=== PATIENT | male | born 1945 | race Caucasian/White ===

== ENCOUNTER → 2023-12-11 | Outpatient (CLI) | payer OTHER, SELFPAY ==
[2023-12-11 14:39] LABS: Basophils # (Auto) 0.1 Thou/mm3 (0.0-0.2); Basophils % (Auto) 1 % (0-2.5); Eosinophils # (Auto) 0.6 Thou/mm3 (0.0-0.5); Eosinophils % (Auto) 8 % (0-10); Hematocrit 33.3 % (41.0-53.0); Hemoglobin 11.2 g/dL (13.5-16.0); Immature Granulocytes % (Auto) 0 % (0-0); Immature Granulocytes Auto 0.01 Thou/mm3 (0.00-0.00); Lymphocytes # (Auto) 2.4 Thou/mm3 (1.0-4.8); Lymphocytes % (Auto) 31 % (10-50); Mean Corpuscular HGB Conc 33.6 g/dl (31.0-37.0); Mean Corpuscular Hemoglobin 33.6 pg (25.0-35.0); Mean Corpuscular Volume 100 fL (80-100); Monocytes # (Auto) 0.6 Thou/mm3 (0.0-0.8); Monocytes % (Auto) 7 % (0-12); Neutrophils # (Auto) 4.1 Thou/mm3 (1.8-7.7); Neutrophils % (Auto) 53 % (37-80); Nucleated Red Blood Cell % 0 /100 WBC (0); Platelet Count 299 Thou/mm3 (140-440); Prostate Specific Antigen 0.87 ng/mL (0-4.00); Red Blood Count 3.33 Miln/mm3 (4.50-5.90); White Blood Count 7.7 Thou/mm3 (3.8-10.6)
[2023-12-11 14:40] LABS: Alanine Aminotransferase 14 U/L (10-49); Albumin, Serum 3.9 gm/dL (3.4-4.8); Albumin/Globulin Ratio 1.7 (1.2-2.2); Alkaline Phosphatase 64 U/L (46-116); Anion Gap 6 (7-16); Aspartate Amino Transferase 13 U/L (0-34); BUN/Creatinine Ratio 16 Ratio (12-20); Bilirubin,Total 0.4 mg/dL (0.3-1.2); Blood Urea Nitrogen 21 mg/dL (9-23); Calcium 9.4 mg/dL (8.3-10.6); Calcium (Corrected) 9.5 mg/dL (8.5-10.1); Carbon Dioxide 23.6 mMol/L (20.0-31.0); Chloride 107 mMol/L (98-107); Creatinine (Component) 1.3 mg/dL (0.6-1.3); Globulin 2.3 gm/dL (2.3-3.5); Glucose 97 mg/dL (74-106); Osmolality,Calculated 276 (275-295); Potassium 4.7 mMol/L (3.4-5.1); Sodium 137 mMol/L (136-145); Total Protein 6.2 gm/dL (5.7-8.2); eGFR 57 See Note
== END | disposition home or self-care (01) ==
LOC: SCTO 12:58
PROVIDERS: PCP Family Medicine; Referring Provider Nurse Practitioner Family; Visit Provider Nurse Practitioner Family
DX: C61 Malignant neoplasm of prostate (principal)
CPT/HCPCS: 36415; 80053; 84153; 85025

== ENCOUNTER 2023-12-14 13:55 | Outpatient (RCR) | payer OTHER, SELFPAY | END 2024-01-06 23:59 | disposition home or self-care (01) | LOC: SCTC 13:55 | PROVIDERS: PCP Family Medicine; Referring Provider Family Medicine; Visit Provider Internal Medicine Hematology & Oncology | DX: Z51.11 Encounter for antineoplastic chemotherapy (principal); C61 Malignant neoplasm of prostate; Z92.3 Personal history of irradiation; I10 Essential (primary) hypertension | CPT/HCPCS: 96402; J9217 ==

== ENCOUNTER → 2024-01-19 | Outpatient (CLI) | payer OTHER, SELFPAY ==
[2024-01-19 15:20] LABS: Basophils # (Auto) 0.1 Thou/mm3 (0.0-0.2); Basophils % (Auto) 1 % (0-2.5); Eosinophils # (Auto) 0.9 Thou/mm3 (0.0-0.5); Eosinophils % (Auto) 11 % (0-10); Hematocrit 32.2 % (41.0-53.0); Hemoglobin 11.2 g/dL (13.5-16.0); Immature Granulocytes % (Auto) 0 % (0-0); Immature Granulocytes Auto 0.01 Thou/mm3 (0.00-0.00); Lymphocytes # (Auto) 2.2 Thou/mm3 (1.0-4.8); Lymphocytes % (Auto) 27 % (10-50); Mean Corpuscular HGB Conc 34.8 g/dl (31.0-37.0); Mean Corpuscular Volume 98 fL (80-100); Monocytes # (Auto) 0.5 Thou/mm3 (0.0-0.8); Monocytes % (Auto) 6 % (0-12); Neutrophils # (Auto) 4.4 Thou/mm3 (1.8-7.7); Neutrophils % (Auto) 54 % (37-80); Nucleated Red Blood Cell % 0 /100 WBC (0); Platelet Count 306 Thou/mm3 (140-440); RDW Standard Deviation 48.8 fL (35.1-43.9); Red Blood Count 3.29 Miln/mm3 (4.50-5.90); White Blood Count 8.2 Thou/mm3 (3.8-10.6)
[2024-01-19 15:47] LABS: Prostate Specific Antigen 1.06 ng/mL (0-4.00)
[2024-01-19 15:48] LABS: Alanine Aminotransferase 19 U/L (10-49); Albumin, Serum 4.2 gm/dL (3.4-4.8); Alkaline Phosphatase 68 U/L (46-116); Anion Gap 6 (7-16); Aspartate Amino Transferase 14 U/L (0-34); BUN/Creatinine Ratio 23 Ratio (12-20); Bilirubin,Total 0.5 mg/dL (0.3-1.2); Blood Urea Nitrogen 25 mg/dL (9-23); Calcium 9.3 mg/dL (8.3-10.6); Calcium (Corrected) 9.3 mg/dL (8.5-10.1); Chloride 106 mMol/L (98-107); Creatinine (Component) 1.1 mg/dL (0.6-1.3); Globulin 2.1 gm/dL (2.3-3.5); Glucose 158 mg/dL (74-106); Osmolality,Calculated 275 (275-295); Potassium 4.6 mMol/L (3.4-5.1); Sodium 134 mMol/L (136-145); Total Protein 6.3 gm/dL (5.7-8.2); eGFR > 60 See Note
== END | disposition home or self-care (01) ==
LOC: SCTO 14:06
PROVIDERS: PCP Family Medicine; Referring Provider Nurse Practitioner Family; Visit Provider Nurse Practitioner Family
DX: C61 Malignant neoplasm of prostate (principal)
CPT/HCPCS: 36415; 80053; 84153; 85025

== ENCOUNTER 2024-01-22 10:50 | Outpatient (RCR) | payer OTHER, SELFPAY | END 2024-02-06 23:59 | disposition home or self-care (01) | LOC: SCTC 10:50 | PROVIDERS: PCP Family Medicine; Referring Provider Family Medicine; Visit Provider Internal Medicine Hematology & Oncology | DX: Z51.11 Encounter for antineoplastic chemotherapy (principal); C61 Malignant neoplasm of prostate; Z92.3 Personal history of irradiation; Z79.818 Long term (current) use of other agents affecting estrogen receptors and estrogen levels; I10 Essential (primary) hypertension | CPT/HCPCS: 96402; J9217 ==

== ENCOUNTER → 2024-02-20 | Outpatient (CLI) | payer OTHER, SELFPAY ==
[2024-02-20 13:40] LABS: Basophils # (Auto) 0.1 Thou/mm3 (0.0-0.2); Basophils % (Auto) 1 % (0-2.5); Eosinophils # (Auto) 0.6 Thou/mm3 (0.0-0.5); Eosinophils % (Auto) 7 % (0-10); Hematocrit 33.2 % (41.0-53.0); Hemoglobin 11.4 g/dL (13.5-16.0); Immature Granulocytes % (Auto) 1 % (0-0); Immature Granulocytes Auto 0.04 Thou/mm3 (0.00-0.00); Lymphocytes % (Auto) 23 % (10-50); Mean Corpuscular HGB Conc 34.3 g/dl (31.0-37.0); Mean Corpuscular Hemoglobin 33.6 pg (25.0-35.0); Mean Corpuscular Volume 98 fL (80-100); Monocytes # (Auto) 0.6 Thou/mm3 (0.0-0.8); Monocytes % (Auto) 6 % (0-12); Neutrophils # (Auto) 5.4 Thou/mm3 (1.8-7.7); Neutrophils % (Auto) 62 % (37-80); Nucleated Red Blood Cell % 0 /100 WBC (0); Platelet Count 305 Thou/mm3 (140-440); RDW Standard Deviation 50.1 fL (35.1-43.9); Red Blood Count 3.39 Miln/mm3 (4.50-5.90); White Blood Count 8.6 Thou/mm3 (3.8-10.6)
[2024-02-20 13:58] LABS: Prostate Specific Antigen 0.87 ng/mL (0-4.00)
[2024-02-20 14:00] LABS: Alanine Aminotransferase 15 U/L (10-49); Albumin/Globulin Ratio 1.7 (1.2-2.2); Alkaline Phosphatase 72 U/L (46-116); Anion Gap 12 (7-16); Aspartate Amino Transferase 16 U/L (0-34); BUN/Creatinine Ratio 23 Ratio (12-20); Bilirubin,Total 0.5 mg/dL (0.3-1.2); Blood Urea Nitrogen 27 mg/dL (9-23); Calcium 9.3 mg/dL (8.3-10.6); Calcium (Corrected) 9.3 mg/dL (8.5-10.1); Carbon Dioxide 21.4 mMol/L (20.0-31.0); Chloride 103 mMol/L (98-107); Creatinine (Component) 1.2 mg/dL (0.6-1.3); Globulin 2.4 gm/dL (2.3-3.5); Glucose 244 mg/dL (74-106); Osmolality,Calculated 285 (275-295); Potassium 4.1 mMol/L (3.4-5.1); Sodium 136 mMol/L (136-145); Total Protein 6.4 gm/dL (5.7-8.2); eGFR > 60 See Note
== END | disposition home or self-care (01) ==
LOC: SCTO 13:13
PROVIDERS: PCP Internal Medicine; Referring Provider Nurse Practitioner Family; Visit Provider Nurse Practitioner Family
DX: C61 Malignant neoplasm of prostate (principal)
CPT/HCPCS: 36415; 80053; 84153; 85025

== ENCOUNTER 2024-02-23 10:48 | Outpatient (RCR) | payer OTHER, SELFPAY | END 2024-03-08 23:59 | disposition home or self-care (01) | LOC: SCTC 10:48 | PROVIDERS: PCP Internal Medicine; Referring Provider Internal Medicine; Visit Provider Nurse Practitioner Family | DX: Z51.11 Encounter for antineoplastic chemotherapy (principal); C61 Malignant neoplasm of prostate; Z19.2 Hormone resistant malignancy status; I10 Essential (primary) hypertension; Z79.818 Long term (current) use of other agents affecting estrogen receptors and estrogen levels | CPT/HCPCS: 96402; 99213; J9217; G0463 ==

== ENCOUNTER → 2024-03-04 | Outpatient (CLI) | payer OTHER, SELFPAY ==
--- NOTE | 2024-03-04 14:11 | XR_ITS ---
Examination: Foot, left, 3 views Technique: AP, oblique, lateral views foot, 3 views Date and time of exam: March 04, 2024 1420 hours INDICATIONS: Patient fell 2 months ago with injury to the foot, foot pain. FINDINGS: Severe osteopenia Advanced osteoarthritis first metatarsophalangeal joint No acute fracture No cortical bone destruction IMPRESSION: Advanced osteoarthritis first metatarsophalangeal joint
== END | disposition home or self-care (01) ==
LOC: SDIM 14:03
PROVIDERS: Referring Provider Podiatrist; Visit Provider Podiatrist
DX: M19.072 Primary osteoarthritis, left ankle and foot (principal)
CPT/HCPCS: 73630

== ENCOUNTER → 2024-04-01 | Outpatient (CLI) | payer OTHER, SELFPAY ==
[2024-04-01 14:26] LABS: Basophils # (Auto) 0.1 Thou/mm3 (0.0-0.2); Basophils % (Auto) 1 % (0-2.5); Eosinophils # (Auto) 0.8 Thou/mm3 (0.0-0.5); Eosinophils % (Auto) 9 % (0-10); Hematocrit 33.8 % (41.0-53.0); Hemoglobin 11.6 g/dL (13.5-16.0); Immature Granulocytes % (Auto) 0 % (0-0); Immature Granulocytes Auto 0.02 Thou/mm3 (0.00-0.00); Lymphocytes # (Auto) 2.1 Thou/mm3 (1.0-4.8); Lymphocytes % (Auto) 25 % (10-50); Mean Corpuscular HGB Conc 34.3 g/dl (31.0-37.0); Mean Corpuscular Hemoglobin 33.7 pg (25.0-35.0); Mean Corpuscular Volume 98 fL (80-100); Monocytes # (Auto) 0.6 Thou/mm3 (0.0-0.8); Monocytes % (Auto) 7 % (0-12); Neutrophils # (Auto) 4.9 Thou/mm3 (1.8-7.7); Neutrophils % (Auto) 58 % (37-80); Nucleated Red Blood Cell % 0 /100 WBC (0); Platelet Count 306 Thou/mm3 (140-440); RDW Standard Deviation 49.4 fL (35.1-43.9); Red Blood Count 3.44 Miln/mm3 (4.50-5.90); White Blood Count 8.5 Thou/mm3 (3.8-10.6)
[2024-04-01 14:34] LABS: Prostate Specific Antigen 0.95 ng/mL (0-4.00)
[2024-04-01 14:37] LABS: Alanine Aminotransferase 18 U/L (10-49); Albumin, Serum 4.1 gm/dL (3.4-4.8); Albumin/Globulin Ratio 1.5 (1.2-2.2); Alkaline Phosphatase 76 U/L (46-116); Anion Gap 9 (7-16); Aspartate Amino Transferase 14 U/L (0-34); BUN/Creatinine Ratio 28 Ratio (12-20); Bilirubin,Total 0.6 mg/dL (0.3-1.2); Blood Urea Nitrogen 31 mg/dL (9-23); Calcium 9.8 mg/dL (8.3-10.6); Calcium (Corrected) 9.8 mg/dL (8.5-10.1); Carbon Dioxide 21.9 mMol/L (20.0-31.0); Chloride 108 mMol/L (98-107); Creatinine (Component) 1.1 mg/dL (0.6-1.3); Globulin 2.7 gm/dL (2.3-3.5); Glucose 126 mg/dL (74-106); Osmolality,Calculated 286 (275-295); Potassium 4.3 mMol/L (3.4-5.1); Sodium 139 mMol/L (136-145); Total Protein 6.8 gm/dL (5.7-8.2); eGFR > 60 See Note
== END | disposition home or self-care (01) ==
PROVIDERS: Referring Provider Nurse Practitioner Family; Visit Provider Nurse Practitioner Family
DX: C61 Malignant neoplasm of prostate (principal)
CPT/HCPCS: 36415; 80053; 84153; 85025

== ENCOUNTER 2024-04-02 14:23 | Outpatient (RCR) | payer OTHER, SELFPAY | END 2024-04-05 23:59 | disposition home or self-care (01) | LOC: SCTC 14:23 | PROVIDERS: PCP Physician Assistant; Referring Provider Physician Assistant; Visit Provider Nurse Practitioner Family | DX: Z51.11 Encounter for antineoplastic chemotherapy (principal); C61 Malignant neoplasm of prostate; Z19.2 Hormone resistant malignancy status; Z79.818 Long term (current) use of other agents affecting estrogen receptors and estrogen levels; Z92.3 Personal history of irradiation; I10 Essential (primary) hypertension; Z86.2 Personal history of diseases of the blood and blood-forming organs and certain disorders involving the immune mechanism | CPT/HCPCS: 96402; J9217 ==

== ENCOUNTER → 2024-05-01 | Outpatient (CLI) | payer OTHER, SELFPAY ==
[2024-05-01 15:24] LABS: Basophils # (Auto) 0.1 Thou/mm3 (0.0-0.2); Basophils % (Auto) 1 % (0-2.5); Eosinophils # (Auto) 0.5 Thou/mm3 (0.0-0.5); Eosinophils % (Auto) 6 % (0-10); Hematocrit 34.5 % (41.0-53.0); Hemoglobin 11.8 g/dL (13.5-16.0); Immature Granulocytes % (Auto) 0 % (0-0); Immature Granulocytes Auto 0.01 Thou/mm3 (0.00-0.00); Lymphocytes # (Auto) 2.4 Thou/mm3 (1.0-4.8); Lymphocytes % (Auto) 29 % (10-50); Mean Corpuscular HGB Conc 34.2 g/dl (31.0-37.0); Mean Corpuscular Hemoglobin 33.7 pg (25.0-35.0); Mean Corpuscular Volume 99 fL (80-100); Monocytes # (Auto) 0.5 Thou/mm3 (0.0-0.8); Monocytes % (Auto) 6 % (0-12); Neutrophils # (Auto) 4.8 Thou/mm3 (1.8-7.7); Neutrophils % (Auto) 58 % (37-80); Nucleated Red Blood Cell % 0 /100 WBC (0); Platelet Count 268 Thou/mm3 (140-440); RDW Standard Deviation 49.2 fL (35.1-43.9); White Blood Count 8.2 Thou/mm3 (3.8-10.6)
[2024-05-01 15:47] LABS: Alanine Aminotransferase 16 U/L (10-49); Albumin/Globulin Ratio 1.5 (1.2-2.2); Alkaline Phosphatase 74 U/L (46-116); Anion Gap 11 (7-16); Aspartate Amino Transferase 16 U/L (0-34); BUN/Creatinine Ratio 27 Ratio (12-20); Bilirubin,Total 0.5 mg/dL (0.3-1.2); Blood Urea Nitrogen 32 mg/dL (9-23); Calcium 9.9 mg/dL (8.3-10.6); Calcium (Corrected) 9.9 mg/dL (8.5-10.1); Carbon Dioxide 22.2 mMol/L (20.0-31.0); Chloride 106 mMol/L (98-107); Creatinine (Component) 1.2 mg/dL (0.6-1.3); Globulin 2.6 gm/dL (2.3-3.5); Glucose 205 mg/dL (74-106); Osmolality,Calculated 290 (275-295); Sodium 139 mMol/L (136-145); Total Protein 6.6 gm/dL (5.7-8.2); eGFR > 60 See Note
[2024-05-01 16:06] LABS: Prostate Specific Antigen 1.07 ng/mL (0-4.00)
== END | disposition home or self-care (01) ==
LOC: SCTO 14:21
PROVIDERS: PCP Physician Assistant; Referring Provider Nurse Practitioner Family; Visit Provider Nurse Practitioner Family
DX: C61 Malignant neoplasm of prostate (principal)
CPT/HCPCS: 36415; 80053; 84153; 85025

== ENCOUNTER 2024-05-02 13:45 | Outpatient (RCR) | payer OTHER, SELFPAY | END 2024-05-06 23:59 | disposition home or self-care (01) | LOC: SCTC 13:45 | PROVIDERS: PCP Internal Medicine; Referring Provider Internal Medicine Hematology & Oncology; Visit Provider Internal Medicine Hematology & Oncology | DX: Z51.11 Encounter for antineoplastic chemotherapy (principal); C61 Malignant neoplasm of prostate; Z79.818 Long term (current) use of other agents affecting estrogen receptors and estrogen levels; Z92.3 Personal history of irradiation; I10 Essential (primary) hypertension | CPT/HCPCS: 96402; J9217 ==

== ENCOUNTER → 2024-05-30 | Outpatient (CLI) | payer OTHER, SELFPAY ==
[2024-05-30 15:34] LABS: Basophils # (Auto) 0.1 Thou/mm3 (0.0-0.2); Basophils % (Auto) 1 % (0-2.5); Eosinophils # (Auto) 0.7 Thou/mm3 (0.0-0.5); Eosinophils % (Auto) 9 % (0-10); Hematocrit 34.4 % (41.0-53.0); Hemoglobin 11.6 g/dL (13.5-16.0); Immature Granulocytes % (Auto) 0 % (0-0); Immature Granulocytes Auto 0.02 Thou/mm3 (0.00-0.00); Lymphocytes # (Auto) 2.7 Thou/mm3 (1.0-4.8); Lymphocytes % (Auto) 34 % (10-50); Mean Corpuscular HGB Conc 33.7 g/dl (31.0-37.0); Mean Corpuscular Hemoglobin 34.1 pg (25.0-35.0); Mean Corpuscular Volume 101 fL (80-100); Monocytes # (Auto) 0.4 Thou/mm3 (0.0-0.8); Monocytes % (Auto) 6 % (0-12); Neutrophils # (Auto) 3.9 Thou/mm3 (1.8-7.7); Neutrophils % (Auto) 50 % (37-80); Nucleated Red Blood Cell % 0 /100 WBC (0); Platelet Count 281 Thou/mm3 (140-440); RDW Standard Deviation 49.8 fL (35.1-43.9); White Blood Count 7.8 Thou/mm3 (3.8-10.6)
[2024-05-30 15:38] LABS: Alanine Aminotransferase 16 U/L (10-49); Albumin, Serum 4.1 gm/dL (3.4-4.8); Albumin/Globulin Ratio 1.8 (1.2-2.2); Alkaline Phosphatase 83 U/L (46-116); Anion Gap 10 (7-16); Aspartate Amino Transferase 15 U/L (0-34); BUN/Creatinine Ratio 20 Ratio (12-20); Bilirubin,Total 0.8 mg/dL (0.3-1.2); Blood Urea Nitrogen 22 mg/dL (9-23); Calcium 9.4 mg/dL (8.3-10.6); Calcium (Corrected) 9.4 mg/dL (8.5-10.1); Carbon Dioxide 22.4 mMol/L (20.0-31.0); Chloride 111 mMol/L (98-107); Creatinine (Component) 1.1 mg/dL (0.6-1.3); Ferritin 148 ng/mL (10.5-307.3); Globulin 2.3 gm/dL (2.3-3.5); Glucose 144 mg/dL (74-106); Iron 77 mcg/dL (65-175); Osmolality,Calculated 291 (275-295); Percent Iron Saturation 27 % (20-55); Potassium 4.2 mMol/L (3.4-5.1); Prostate Specific Antigen 1.14 ng/mL (0-4.00); Sodium 143 mMol/L (136-145); Total Iron Binding Capacity 285 mcg/dL (250-425); Total Protein 6.4 gm/dL (5.7-8.2); Unsaturated Iron Binding 208 (225-295); eGFR > 60 See Note
[2024-05-30 15:39] LABS: Folate 12.37 ng/mL (>5.38); Vitamin B12 576 pg/mL (211-911)
== END | disposition home or self-care (01) ==
LOC: SCTO 13:22
PROVIDERS: Referring Provider Nurse Practitioner Family; Visit Provider Nurse Practitioner Family
DX: C61 Malignant neoplasm of prostate (principal)
CPT/HCPCS: 36415; 80053; 82607; 82728; 82746; 83540; 83550; 84153; 85025

== ENCOUNTER 2024-06-03 13:40 | Outpatient (RCR) | payer OTHER, SELFPAY | END 2024-06-05 23:59 | disposition home or self-care (01) | LOC: SCTC 13:40 | PROVIDERS: PCP Physician Assistant; Referring Provider Physician Assistant; Visit Provider Internal Medicine Hematology & Oncology | DX: Z51.11 Encounter for antineoplastic chemotherapy (principal); C61 Malignant neoplasm of prostate; Z19.2 Hormone resistant malignancy status; Z92.3 Personal history of irradiation; Z79.818 Long term (current) use of other agents affecting estrogen receptors and estrogen levels | CPT/HCPCS: 96402; J9217 ==

== ENCOUNTER 2024-06-11 13:52 | Outpatient (RCR) | payer OTHER, SELFPAY | END 2024-07-06 23:59 | disposition home or self-care (01) | LOC: SCTC 13:52 | PROVIDERS: PCP Physician Assistant; Referring Provider Physician Assistant; Visit Provider Nurse Practitioner Family | DX: C61 Malignant neoplasm of prostate (principal); Z19.2 Hormone resistant malignancy status; Z92.3 Personal history of irradiation; Z79.818 Long term (current) use of other agents affecting estrogen receptors and estrogen levels; K59.09 Other constipation; I10 Essential (primary) hypertension | CPT/HCPCS: 99212; G0463 ==

== ENCOUNTER → 2024-06-21 | Outpatient (CLI) | payer OTHER, SELFPAY ==
--- NOTE | 2024-06-21 | XR_ITS ---
Examination: Bone scan whole body, radioisotope Date and time of exam: June 21, 2024 1408 hours Comparison June 10, 2023 INDICATIONS: Diagnosis malignant neoplasm prostate status post radiation therapy, restaging Technique: Study has been performed with intravenous administration of 23.7 mci 99M technetium MDP. Anterior, posterior whole body images are obtained. Images have been obtained including the lower extremities. Findings: Subtle increased uptake in the lumbar thoracic spine, heterogeneous Increased uptake left shoulder IMPRESSION: Positive bone scan but nonspecific Recommend plain films lumbar thoracic spine left shoulder follow-up
== END | disposition home or self-care (01) ==
LOC: SNUC 08:53
PROVIDERS: Referring Provider Nurse Practitioner Family; Visit Provider Nurse Practitioner Family
DX: R93.7 Abnormal findings on diagnostic imaging of other parts of musculoskeletal system (principal); C61 Malignant neoplasm of prostate
CPT/HCPCS: 78306; A9503

== ENCOUNTER → 2024-07-08 | Outpatient (CLI) | payer OTHER, SELFPAY ==
[2024-07-08 10:23] LABS: Basophils # (Auto) 0.1 Thou/mm3 (0.0-0.2); Basophils % (Auto) 1 % (0-2.5); Eosinophils # (Auto) 0.5 Thou/mm3 (0.0-0.5); Eosinophils % (Auto) 8 % (0-10); Hematocrit 31.8 % (41.0-53.0); Immature Granulocytes % (Auto) 0 % (0-0); Immature Granulocytes Auto 0.02 Thou/mm3 (0.00-0.00); Lymphocytes # (Auto) 1.6 Thou/mm3 (1.0-4.8); Lymphocytes % (Auto) 24 % (10-50); Mean Corpuscular HGB Conc 34.6 g/dl (31.0-37.0); Mean Corpuscular Hemoglobin 33.5 pg (25.0-35.0); Mean Corpuscular Volume 97 fL (80-100); Monocytes # (Auto) 0.5 Thou/mm3 (0.0-0.8); Monocytes % (Auto) 7 % (0-12); Neutrophils % (Auto) 60 % (37-80); Nucleated Red Blood Cell % 0 /100 WBC (0); Platelet Count 258 Thou/mm3 (140-440); RDW Standard Deviation 48.7 fL (35.1-43.9); Red Blood Count 3.28 Miln/mm3 (4.50-5.90); White Blood Count 6.7 Thou/mm3 (3.8-10.6)
[2024-07-08 10:44] LABS: Prostate Specific Antigen 1.04 ng/mL (0-4.00)
[2024-07-08 10:56] LABS: Alanine Aminotransferase 13 U/L (10-49); Albumin, Serum 3.8 gm/dL (3.4-4.8); Albumin/Globulin Ratio 1.7 (1.2-2.2); Alkaline Phosphatase 73 U/L (46-116); Anion Gap 9 (7-16); Aspartate Amino Transferase 14 U/L (0-34); BUN/Creatinine Ratio 25 Ratio (12-20); Bilirubin,Total 0.6 mg/dL (0.3-1.2); Blood Urea Nitrogen 25 mg/dL (9-23); Calcium 8.8 mg/dL (8.3-10.6); Carbon Dioxide 22.5 mMol/L (20.0-31.0); Chloride 113 mMol/L (98-107); Globulin 2.3 gm/dL (2.3-3.5); Glucose 163 mg/dL (74-106); Osmolality,Calculated 295 (275-295); Potassium 3.9 mMol/L (3.4-5.1); Sodium 144 mMol/L (136-145); Total Protein 6.1 gm/dL (5.7-8.2); eGFR > 60 See Note
== END | disposition home or self-care (01) ==
LOC: SCTO 09:33
PROVIDERS: PCP Family Medicine; Referring Provider Nurse Practitioner Family; Visit Provider Nurse Practitioner Family
DX: C61 Malignant neoplasm of prostate (principal)
CPT/HCPCS: 36415; 80053; 84153; 85025

== ENCOUNTER 2024-07-11 12:59 | Outpatient (RCR) | payer OTHER, SELFPAY | END 2024-08-05 23:59 | disposition home or self-care (01) | LOC: SCTC 12:59 | PROVIDERS: PCP Family Medicine; Referring Provider Family Medicine; Visit Provider Internal Medicine Hematology & Oncology | DX: Z51.11 Encounter for antineoplastic chemotherapy (principal); C61 Malignant neoplasm of prostate; I10 Essential (primary) hypertension; M15.9 Polyosteoarthritis, unspecified | CPT/HCPCS: 96402; 99212; J9217; G0463 ==

== ENCOUNTER → 2024-07-19 | Outpatient (CLI) | payer OTHER, SELFPAY ==
--- NOTE | 2024-07-19 10:02 | XR_ITS ---
Examination: Lumbar spine 3 views Technique one AP lateral coned lateral lower lumbar spine 3 views Date and time: July 19, 2024 1021 hours INDICATIONS: Low back pain beginning one month ago FINDINGS: Lumbar dextroscoliosis 8 degrees No lumbar fracture Moderate degenerative disc disease L3-L4, advanced degenerative disc disease L5-S1 No spondylolisthesis Heavy abdominal aortic calcification IMPRESSION: Moderate degenerative disc disease L3-L4 Advanced degenerative disc disease L5-S1
--- NOTE | 2024-07-19 10:03 | XR_ITS ---
Examination: Thoracic spine 3 views Technique one AP lateral coned lateral upper dorsal spine 3 views Date and time: July 19, 2024 1014 hours INDICATIONS: Mid back pain beginning one month ago. FINDINGS: Adequate alignment thoracic vertebral bodies on the lateral view No acute thoracic fracture Moderate diffuse thoracic degenerative disc disease Moderate thoracic spondylosis Incidental note moderate to advanced degenerative disc disease C5-C6 C6-C7 IMPRESSION: Moderate diffuse thoracic degenerative disc disease
== END | disposition home or self-care (01) ==
PROVIDERS: PCP Family Medicine; Referring Provider Nurse Practitioner Family; Visit Provider Nurse Practitioner Family
DX: M51.379 Other intervertebral disc degeneration, lumbosacral region without mention of lumbar back pain or lower extremity pain (principal); M51.369 Other intervertebral disc degeneration, lumbar region without mention of lumbar back pain or lower extremity pain; I70.0 Atherosclerosis of aorta; M41.9 Scoliosis, unspecified; M51.34 Other intervertebral disc degeneration, thoracic region; M47.814 Spondylosis without myelopathy or radiculopathy, thoracic region
CPT/HCPCS: 72070; 72100

== ENCOUNTER → 2024-08-13 | Outpatient (CLI) | payer OTHER, SELFPAY ==
[2024-08-13 09:23] LABS: Basophils # (Auto) 0.0 Thou/mm3 (0.0-0.2); Basophils % (Auto) 1 % (0-2.5); Eosinophils # (Auto) 0.3 Thou/mm3 (0.0-0.5); Eosinophils % (Auto) 5 % (0-10); Hematocrit 30.0 % (41.0-53.0); Hemoglobin 10.3 g/dL (13.5-16.0); Immature Granulocytes Auto 0.02 Thou/mm3 (0.00-0.00); Lymphocytes # (Auto) 1.5 Thou/mm3 (1.0-4.8); Lymphocytes % (Auto) 25 % (10-50); Mean Corpuscular HGB Conc 34.3 g/dl (31.0-37.0); Mean Corpuscular Hemoglobin 34.1 pg (25.0-35.0); Mean Corpuscular Volume 99 fL (80-100); Monocytes # (Auto) 0.4 Thou/mm3 (0.0-0.8); Monocytes % (Auto) 7 % (0-12); Neutrophils # (Auto) 3.5 Thou/mm3 (1.8-7.7); Neutrophils % (Auto) 62 % (37-80); Nucleated Red Blood Cell # 0.00 Thou/mm3 (0.00-0.00); Nucleated Red Blood Cell % 0 /100 WBC (0); Platelet Count 262 Thou/mm3 (140-440); RDW Standard Deviation 53.2 fL (35.1-43.9); Red Blood Count 3.02 Miln/mm3 (4.50-5.90); White Blood Count 5.7 Thou/mm3 (3.8-10.6)
[2024-08-13 09:28] LABS: Alanine Aminotransferase 18 U/L (10-49); Albumin, Serum 3.6 gm/dL (3.4-4.8); Albumin/Globulin Ratio 1.5 (1.2-2.2); Alkaline Phosphatase 64 U/L (46-116); Anion Gap 11 (7-16); Aspartate Amino Transferase 14 U/L (0-34); BUN/Creatinine Ratio 22 Ratio (12-20); Bilirubin,Total 0.6 mg/dL (0.3-1.2); Blood Urea Nitrogen 22 mg/dL (9-23); Calcium 8.8 mg/dL (8.3-10.6); Calcium (Corrected) 9.1 mg/dL (8.5-10.1); Carbon Dioxide 24.5 mMol/L (20.0-31.0); Chloride 113 mMol/L (98-107); Creatinine (Component) 1.0 mg/dL (0.6-1.3); Globulin 2.4 gm/dL (2.3-3.5); Glucose 179 mg/dL (74-106); Osmolality,Calculated 301 (275-295); Potassium 3.5 mMol/L (3.4-5.1); Sodium 148 mMol/L (136-145); Total Protein 6.0 gm/dL (5.7-8.2); eGFR > 60 See Note
[2024-08-13 10:45] LABS: Prostate Specific Antigen 1.33 ng/mL (0-4.00)
== END | disposition home or self-care (01) ==
LOC: SCTO 07:51
PROVIDERS: PCP Internal Medicine; Referring Provider Nurse Practitioner Family; Visit Provider Nurse Practitioner Family
DX: C61 Malignant neoplasm of prostate (principal)
CPT/HCPCS: 36415; 80053; 84153; 85025

== ENCOUNTER 2024-08-27 12:49 | Inpatient (IN) | payer OTHER, SELFPAY ==
[2024-08-27] VITALS (17 sets, daily range): BP systolic 158–189; BP diastolic 60–100; PULSE 51–81; RESP 13–23; TEMP 36.2–38; O2SAT 93–96; BMI 27.7
--- NOTE | 2024-08-27 | XR_ITS ---
6 Examinations: MRI Brain without intravenous contrast. MRA brain without intravenous contrast. MRA carotids without intravenous contrast 3-D vascular reconstructions Date and time of exam: August 27, 2024 1527 hours INDICATIONS: Dizziness headaches this week Technique: Multiple axial and sagittal images of the brain have been obtained MRA brain carotid images without contrast obtained, including 3-D postprocessing, vascular maximum intensity projection images Findings: [place] is not enlarged. The optic chiasm and infundibular stalk are not remarkable. Prepontine and interpeduncular cisterns are not enlarged. No localized enlargement of the medulla or ivy. Fourth ventricle and cerebellar tonsils normal in position. Subacute hemorrhage is not seen. Fourth ventricle is midline. Mass in the cerebellopontine angle region is not evident. 7th and 8th nerve complexes exhibits symmetry. Globes are symmetrical with no retro-orbital mass. Increased white matter signal prominent Diffusion-weighted images demonstrate no acute infarct Mass-effect upon the ventricular system is not identified. MRA carotid images suspicious for 80% stenosis origin left internal carotid artery. MRA brain images no large vessel occlusions Impression: Negative for acute hemorrhage mass effect or midline shift No acute infarct Recommend carotid Doppler sonography follow-up to confirm significant stenosis origin left internal carotid artery
--- NOTE | 2024-08-27 12:52 | EKG_ITS ---
[facility] Test Date: 2024-08-27 Pat Name: BRIANNE DAVIS Department: Room: - Gender: Male W[employer] Tender: : 1945 Requested By: Quirino Strange (MAUREEN) Order Number: [id number] Reading MD: Quirino Strange (PULL TAB DEALER) Measurements Intervals [place] Rate: 69 P: IA: QRS: -63 QRSD: 151 T: 73 QT: 460 QTc: 496 Interpretive Statements ATRIAL FIBRILLATION RIGHT BUNDLE BRANCH BLOCK [120+ ms QRS DURATION, UPRIGHT V1, 40+ ms S IN I/aVL/V4/V5/V6] LEFT ANTERIOR FASCICULAR BLOCK [QRS AXIS <= -45, QR IN I, RS IN II] No previous ECG available for comparison /[id number]/[email or web address]/[id number].pdf
--- NOTE | 2024-08-27 12:52 | XR_ITS ---
Examination: PA chest single view TECHNIQUE: Upright PA chest single view Date and time: August 27, 2024 1311 hours INDICATIONS: Chest pain shortness of breath today. FINDINGS: Normal heart size. Mild hyperexpansion. No pneumonia or pulmonary edema. IMPRESSION: Mild hyperexpansion
--- NOTE | 2024-08-27 13:03 | XR_ITS ---
Examination: CTA chest with intravenous contrast 2-D reconstructions 3-D reconstructions, vascular Date and time of exam: August 27, 2024 1755 hours INDICATIONS: Onset shortness of breath chest pain today CTDI: vol (mGy) 1823. DLP: (mGycm) 449 Technique: Multiple axial sections of the thorax have been obtained. 3 mm slice thickness, from below the hemidiaphragms to above the apices of the lungs. Mediastinal and lung density settings have been obtained. 2-D sagittal and coronal reconstructions. 3-D angiographic renderings, 3-D volume renderings, 3D post processing, vascular maximum intensity projections obtained. Contrast administered is 100 cc Isovue 370 intravenous.. Low dose protocols were performed. One or more of the following dose reduction techniques were used; automated exposure control, adjustment of the mA and/or KV according to patient size, use of iterative reconstruction technique. Findings: Mild aneurysmal dilatation ascending thoracic aorta AP dimension 4.1 cm No pulmonary artery emboli No paratracheal tracheobronchial or bronchopulmonary adenopathy Soft opacities in the right upper lobe suspicious for mild pneumonia 4 mm pulmonary nodule in the left upper lobe image 170 Retrocardiac gastric hernia No focal liver or splenic lesions No pancreatic mass Lateral left renal cyst 39 mm IMPRESSION: Mild aneurysmal dilatation ascending thoracic aorta. Negative for pulmonary artery emboli Mild pneumonia right upper lobe 4 mm pulmonary nodule left lower lobe, recommend 6 month follow-up CT chest without contrast
--- NOTE | 2024-08-27 13:03 | XR_ITS ---
Examination: Duplex scan of the lower extremity, unilateral right complete Date and time of exam: August 27, 2024 1318 hours INDICATIONS: Right leg swelling and pain beginning 2 months ago Technique: Duplex scan of the extremity veins using B-mode/grayscale imaging and Doppler spectral analysis and color flow Attention is directed to internal echogenicity, compression and augmentation involving these veins, color flow assessment, spectral analysis Findings: Major deep venous structures in the extremity demonstrate normal course and caliber. There is no evidence of deep vein thrombosis. Normal color flow and spectral analysis Impression: Negative for DVT..
--- NOTE | 2024-08-27 13:07 | PD.EDDIZZY ---
ED Dizzyness RME/HPI General Chief Complaint: Dizziness Stated Complaint: Dizzy X 3 days, SOB Time Seen by Provider: 08/27/24 13:02 Arrival date/time: 08/27/24 12:49 Limitations: no limitations RME / HPI RME / HPI Narrative: 78 year old male with a history of right lower leg edema, shortness of breath, and dizziness. He states when he looks up or turns his head he has increased dizziness. Denies any injuries or falls. No history of CVA or PE. He has no fevers or chills. Has no chest/abdominal pain, nausea, vomiting. No diarrhea. He has no changes in urination. He has no other acute complaints or concerns. Related Data Home Medications ?Medication ?Instructions ?Recorded ?Confirmed insulin glargine 100 unit/mL 56 unit subcut QPM ##0 06/01/16 05/30/23 subcutaneous solution (Lantus U-100 Insulin) abiraterone 250 mg tablet 1,000 mg PO QDAY 04/13/23 05/30/23 aspirin 81 mg tablet,delayed 81 mg PO QDAY 04/13/23 05/30/23 release gabapentin 100 mg capsule 100 mg PO TID 04/13/23 05/30/23 lisinopril 20 mg tablet 20 mg PO QDAY 04/13/23 05/30/23 prednisone 5 mg tablet 5 mg PO QDAY 04/13/23 05/30/23 rosuvastatin 5 mg tablet 5 mg PO QDAY 04/13/23 05/30/23 terazosin 5 mg capsule 5 mg PO QHS 04/13/23 05/30/23 Allergies Allergy/AdvReac Type Severity Reaction Status Date / Time No Known Allergies Allergy Verified 08/27/24 12:53 Review of Systems Review of Systems Systems Reviewed: All systems reviewed, normal except as documented ED Exam General Limitations: Present no limitations General appearance: Present alert and in no apparent distress Head Head exam: Present atraumatic Eye Eye exam: Present normal appearance, PERRL and EOMI ENT ENT exam: Present normal exam, normal oropharynx and mucous membranes moist Neck Neck exam: Present normal inspection, full ROM and trachea midline Chest Chest inspection: Present normal inspection and symmetric chest wall rise Respiratory Respiratory exam: Present normal lung sounds bilaterally Cardiovascular Cardiovascular exam: Present regular rate, irregular rhythm and normal heart sounds Abdominal Exam Abdominal exam: Present soft and normal bowel sounds Extremities Exam Extremities exam: Present normal inspection and full ROM Back Exam Back exam: Present normal inspection and full ROM Neurological Exam Neurological exam: Present alert and oriented X3 Psychiatric Psychiatric exam: Present normal affect and normal mood Skin Skin exam: Present warm, dry, intact and normal color Course Quality Measures none Orders Category Date Time Status COVID-19 Screening Questionnaire NOW Care 08/27/24 19:[address] Screening NOW Care 08/27/24 13:04 Active Configuration Analyst NOW Care 08/27/24 12:52 Active Decision to Admit X1 Care 08/27/24 19:22 Ordered EKG (ED ONLY) *Do not use* NOW Care 08/27/24 12:52 Completed MRI Screening NOW Care 08/27/24 13:04 Active MRI Screening NOW Care 08/27/24 13:[address] angio chest Stat Exams 08/27/24 13:03 Completed EKG (ED Only) Stat Exams 08/27/24 12:52 Draft MR brain wo MRA brn wo weir wo Stat Exams 08/27/24 Completed US venous doppler LE RT Stat Exams 08/27/24 13:03 Completed XR chest 1V portable Stat Exams 08/27/24 12:52 Completed B-Type Natriuretic Peptide Stat Lab 08/27/24 12:59 Completed CBC Stat Lab 08/27/24 12:59 Completed Comprehensive Metabolic Panel Stat Lab 08/27/24 12:59 Completed Magnesium Stat Lab 08/27/24 12:59 Completed Partial Thromboplastin Time Stat Lab 08/27/24 12:59 Completed Prothrombin Time with INR Stat Lab 08/27/24 12:59 Completed Troponin I Stat Lab 08/27/24 12:59 Completed Troponin I Stat Lab 08/27/24 16:25 Completed Urinalysis Stat Lab 08/27/24 17:41 Completed Amoxicillin/Pot Clav 875 [Augmentin 875] Med 08/27/24 18:36 Discontinued 1 tab PO X1 ONE Magnesium Oxide [Mag-Ox 400] Med 08/27/24 17:38 Discontinued 400 mg PO X1 ONE POTASSIUM CHL 10 mEq IVPB [Kcl Ivpb] Med 08/27/24 17:38 Active 10 meq in 100 ml IV Q1H Potassium Chloride [K-Dur] Med 08/27/24 17:38 Discontinued 20 meq PO X1 ONE Sodium Chloride 0.9% 1000 ml [Ns] 1,000 ml Med 08/27/24 18:05 Active IV 150 mls/hr Vital Signs Vital signs: Vital Signs Temperature 98.6 F 08/27/24 13:02 Pulse Rate 67 08/27/24 13:02 Respiratory Rate 18 08/27/24 13:02 Blood Pressure 158/60 H 08/27/24 13:02 Pulse Oximetry (%) 96 08/27/24 13:02 Oxygen Delivery Method Room Air 08/27/24 13:02 Dizziness MDM Narrative MDM Narrative:: 78 year old male with a history of right lower leg edema, shortness of breath, and dizziness. He states when he looks up or turns his head he has increased dizziness. Denies any injuries or falls. No history of CVA or PE. He has no fevers or chills. Has no chest/abdominal pain, nausea, vomiting. No diarrhea. He has no changes in urination. He has no other acute complaints or concerns. On exam, patient is nontoxic. No visible signs of distress. Cranial nerves II to XII are grossly intact. He is hypertensive at 150/60, vital signs are otherwise unremarkable. Workup reveals the following. He has no leukocytosis, has a mild anemia without hemoglobin 11 and hematocrit 31.6. CBC is otherwise unremarkable. His metabolic panel reveals a mild hypokalemia at 3.2 and a glucose of 154. He has a magnesium of 1.3. His BNP is 347. His troponin is elevated but essentially flat with serial checks. Initial troponin 0.047, repeat troponin is 0.050. He had no chest pain throughout the ER course. CTA of the chest was negative for pulmonary emboli although it revealed pneumonia. CT of the head was unremarkable. MR of the brain and neck were unremarkable for any acute bleed or thrombus. 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 Moore. No further workup was recommended emergently. EKG revealed atrial fibrillation. Patient will be discharged with a prescription of Augmentin for his pneumonia. Case discussed with our hospitalist who will see the patient for admission. Patient data External records reviewed:: [facility] previous records Clinical information provided by:: patient Social determinants that could affect healthcare access:: none Patient has the following chronic illnesses:: Hypertension, diabetes, hyperlipidemia How is presenting disease/condition affected by chronic disease/condition?: exacerbated by Evaluation data The following diagnostics were reviewed and interpreted by me:: lab results (No leukocytosis or severe anemia. Mild hypokalemia and hypomagnesia elevated troponins but no consistent rise during the ER course.), radiology exam(s) (CTA of the chest was negative for pulmonary emboli although it revealed pneumonia. CT of the head was unremarkable. MR of the brain and neck were unremarkable for any acute bleed or thrombus. 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, this was discussed with attending ER physic) and EKG tracing(s) (Atrial fibrillation at [address] changes) Lab and/or radiology exams considered but not ordered:: n/a Interpretation Summary: Carotid artery stenosis, atrial fibrillation, pneumonia, hypokalemia, hypomagnesia Medications / Prescriptions Medications or Prescriptions considered but not ordered:: n/a Medication administrations:: Medication Administration History Potassium Chloride (Kcl Ivpb) 10 meq in 100 mls @ 100 mls/hr IV Q1H CRICKET Stop: 08/27/24 19:37 Last Admin: 08/27/24 18:15 Dose: 100 mls/hr Documented By: ALANA Sodium Chloride (Ns) 1,000 mls @ 150 mls/hr IV .Q6H40M ONE Stop: 08/28/24 00:44 Last Admin: 08/27/24 18:16 Dose: 150 mls/hr Documented By: ALANA Discontinued Medications Amoxicillin/Clavulanate Potassium (Amoxicillin/Pot Clav 875 Tablet) 1 tab PO X1 ONE Stop: 08/27/24 18:37 Magnesium Oxide (Magnesium Oxide 400 Mg Tablet) 400 mg PO X1 ONE Stop: 08/27/24 17:39 Last Admin: 08/27/24 18:09 Dose: 400 mg Documented By: ALANA Potassium Chloride (Potassium Chloride 20 Meq Tabcr) 20 meq PO X1 ONE Stop: 08/27/24 17:39 Last Admin: 08/27/24 18:09 Dose: 20 meq Documented By: ALANA See above Consultations Consultation(s) initiated? (list below): No Diagnosis Dizziness Differential Diagnosis: benign paroxysmal positional vertigo, orthostatic hypotension and cerebrovascular accident Most likely diagnosis given after review of the tests above:: Carotid artery stenosis, atrial fibrillation, pneumonia, hypokalemia, hypomagnesia Admission Indicated Admission indicated?: indicated Admission Request Was there a request for admission?: Yes Admission Attestation Admission request attestation: Discussed case with [] from Hospitalist service regarding admission. Discussed patients ED course, exam findings, labs, and radiology results. The Hospitalist [agrees,declines] to accept the patient for admission. Disposition Plan Disposition Plan: Admit Discharge Plan Plan Patient Disposition: Admit Acute Care w/in Hospital Prescriptions/Referrals Prescriptions/Med Rec: No Action aspirin 81 mg tablet,delayed release (DR/EC) 81 mg PO QDAY terazosin 5 mg capsule 5 mg PO QHS gabapentin 100 mg capsule 100 mg PO TID lisinopril 20 mg tablet 20 mg PO QDAY abiraterone 250 mg tablet 1,000 mg PO QDAY Rx Instructions: must be taken on empty stomach, at least 1 hr before or 2 hrs after a meal/food prednisone 5 mg tablet 5 mg PO QDAY rosuvastatin 5 mg tablet 5 mg PO QDAY Lantus U-100 Insulin 1 UNIT/0.01 ML unit 56 unit Sub-Q QPM Qty: 0 Referrals: No Primary/Family,Physician [Primary Care Provider] - In 1 week Problem List Clinical Impression: Atrial fibrillation, Pneumonia, Acute hypokalemia, Hypomagnesemia, Dizziness, Elevated troponin Patient/Caregiver Discharge Instructions Print Language: Cymraes Stand Alone Forms: Danyelle Award Info., Patient Portal Info Letter
[2024-08-27 13:11] LABS: Basophils # (Auto) 0.1 Thou/mm3 (0.0-0.2); Basophils % (Auto) 1 % (0-2.5); Eosinophils # (Auto) 0.3 Thou/mm3 (0.0-0.5); Eosinophils % (Auto) 3 % (0-10); Hematocrit 31.6 % (41.0-53.0); Hemoglobin 11.0 g/dL (13.5-16.0); Immature Granulocytes Auto 0.02 Thou/mm3 (0.00-0.00); Lymphocytes # (Auto) 1.9 Thou/mm3 (1.0-4.8); Lymphocytes % (Auto) 25 % (10-50); Mean Corpuscular HGB Conc 34.8 g/dl (31.0-37.0); Mean Corpuscular Hemoglobin 34.0 pg (25.0-35.0); Mean Corpuscular Volume 98 fL (80-100); Monocytes # (Auto) 0.6 Thou/mm3 (0.0-0.8); Monocytes % (Auto) 7 % (0-12); Neutrophils # (Auto) 4.8 Thou/mm3 (1.8-7.7); Neutrophils % (Auto) 63 % (37-80); Nucleated Red Blood Cell # 0.00 Thou/mm3 (0.00-0.00); Nucleated Red Blood Cell % 0 /100 WBC (0); Platelet Count 242 Thou/mm3 (140-440); RDW Standard Deviation 51.7 fL (35.1-43.9); Red Blood Count 3.24 Miln/mm3 (4.50-5.90); White Blood Count 7.6 Thou/mm3 (3.8-10.6)
[2024-08-27 13:23] LABS: INR 1.2 (0.9-1.3); Partial Thromboplastin Time 26.2 Seconds (22.0-36.0); Prothrombin Time 12.6 Seconds (9.0-12.2)
[2024-08-27 13:26] LABS: B-Type Natriuretic Peptide 347 pg/mL (0-100)
[2024-08-27 13:36] LABS: Anion Gap 10 (7-16); BUN/Creatinine Ratio 18 Ratio (12-20); Blood Urea Nitrogen 18 mg/dL (9-23); Calcium 8.8 mg/dL (8.3-10.6); Carbon Dioxide 24.8 mMol/L (20.0-31.0); Chloride 108 mMol/L (98-107); Creatinine (Component) 1.0 mg/dL (0.6-1.3); Estimated Creatinine Clearance 69.9 mL/min (>60); Glucose 154 mg/dL (74-106); Osmolality,Calculated 289 (275-295); Potassium 3.2 mMol/L (3.4-5.1); Sodium 143 mMol/L (136-145); eGFR > 60 See Note
[2024-08-27 13:37] LABS: Alanine Aminotransferase 25 U/L (10-49); Albumin, Serum 3.8 gm/dL (3.4-4.8); Albumin/Globulin Ratio 1.5 (1.2-2.2); Alkaline Phosphatase 74 U/L (46-116); Aspartate Amino Transferase 20 U/L (0-34); Bilirubin,Total 0.8 mg/dL (0.3-1.2); Calcium (Corrected) 9.0 mg/dL (8.5-10.1); Globulin 2.6 gm/dL (2.3-3.5); Magnesium 1.3 mg/dL (1.6-2.6); Total Protein 6.4 gm/dL (5.7-8.2)
[2024-08-27 13:38] LABS: Troponin I 0.046 ng/mL (0.0-0.045)
[2024-08-27 17:11] LABS: Troponin I 0.050 ng/mL (0.0-0.045)
--- NOTE | 2024-08-27 17:12 | PC.NURSE ---
PATIENT CURRENTLY IN CT.
[2024-08-27 17:50] LABS: Collection Type, Urine Clean Catch
[2024-08-27 17:55] LABS: Amorphous Crystals,Urine Present (Absent); Bilirubin,Urine Negative (Negative); Blood,Urine Negative (Negative); Clarity,Urine Turbid (Clear/Hazy); Color,Urine Lt-Yellow (Lt Yel-Yel); Glucose, Urine Negative (Negative); Ketones,Urine Negative (Negative); Leukocyte Esterase,Urine Negative (Negative); Nitrite,Urine Negative (Negative); PH,Urine 6.5 (5.0-7.0); Protein,Urine Negative (Neg - Trace); RBC,Urine 3 /hpf (0-3); Specific Gravity,Urine 1.014 (1.001-1.035); Squamous Epithelial Cell,Urine 2 /hpf (0-5); Urobilinogen,Urine Negative mg/dL (0.0-1.0); WBC,Urine 2 /hpf (0-5)
[2024-08-27] MEDS: MAGNESIUM OXIDE 400 MG TABLET PO (18:09)
[2024-08-27] MEDS: POTASSIUM CHL 10 mEq IVPB 10 MEQ/100 ML BAG 100 MEQ IV ×2 (18:15→19:21)
[2024-08-27] MEDS: SODIUM CHLORIDE 0.9% 1000 ML 1,000 ML 150 ML IV (18:16)
[2024-08-27] MEDS: FUROSEMIDE INJ 10 MG/ML 4ML VIAL 40 MG IVP (19:20)
[2024-08-27] MEDS: AMOXICILLIN/POT CLAV 875 TABLET 1 TAB PO (19:30)
--- NOTE | 2024-08-27 19:45 | XR_ITS ---
Examination: Carotid arterial duplex scan, ultrasound. Date and time of exam: August 27, 20242010 hours INDICATIONS: Dizziness beginning 3 days ago Technique: Multiple sonographic images have been obtained of the carotid arteries and vertebral arteries, B-mode/grayscale imaging and Doppler spectral analysis and color flow Peak systolic and diastolic velocities have been recorded. Systolic diastolic ratios have been calculated. Findings: Right peak systolic velocities: Distal internal carotid artery peak systolic velocity is 0.7 M/sec Proximal internal carotid artery peak systolic velocity is 0.5 M/sec Carotid bifurcation peak systolic velocity is 0.7 M/sec External carotid artery peak systolic velocity is 1.5 M/sec Vertebral artery flow is antegrade. Left peak systolic velocities: Distal internal carotid artery peak systolic velocity is 0.6 M/sec Proximal internal carotid artery peak systolic velocity is 0.8 M/sec Carotid bifurcation peak systolic velocity is 0.6 M/sec External carotid artery peak systolic velocity is 0.9 M/sec Vertebral artery flow is antegrade Doppler waveform analysis demonstrates no spectral broadening Impression: Right internal carotid artery demonstrates 0-10% stenosis. Left internal carotid artery demonstrates 0-10% stenosis. Significant left internal carotid artery stenosis is not confirmed on this study
--- NOTE | 2024-08-27 19:47 | ECHO_ITS ---
Transthoracic Echo Report Ht (in): 73 Wt (lb): 210 Exam Location: Echo Lab Status: Emergency Activity Director: Nicol Hernandez Indications: Procedure Performed: BP: 146 / 64 HR: 65 MEASUREMENTS (Male / Female) Normal Values 2D ECHO LV Diastolic Diameter PLAX 5.8 cm 4.2 - 5.9 / 3.9 - 5.3 cm LV Systolic Diameter PLAX 4.7 cm IVS Diastolic Thickness 1.3 cm 0.6 - 1.0 / 0.6 - 0.9 cm LVPW Diastolic Thickness 1.4 cm 0.6 - 1.0 / 0.6 - 0.9 cm LV Relative Wall Thickness 0.5 LVOT Diameter 2.3 cm Aortic Root Diameter 3.7 cm LA Systolic Diameter LX 3.9 cm 3.0 - 4.0 / 2.7 - 3.8 cm LV Ejection Fraction MOD BP 31.2 % >= 55 % LV Cardiac Index MOD BP 1428.2 cm?/min?m? LV Ejection Fraction MOD 4C 34.2 % LV Cardiac Index MOD 4C 1574.0 cm?/min?m? LV Ejection Fraction 4C AL 34.5 % LV Cardiac Index 4C AL 1657.1 cm?/min?m? LV Ejection Fraction MOD 2C 29.5 % LV Cardiac Index MOD 2C 1282.5 cm?/min?m? LV Ejection Fraction 2C AL 32.8 % LV Cardiac Index 2C AL 1507.0 cm?/min?m? LA Volume Index 30.7 cm?/m? 16 - 28 cm?/m? M-MODE Aortic Root Diameter MM 3.7 cm LA Systolic Diameter MM 4.4 cm LA Ao Ratio MM 1.2 AV Cusp Separation MM 2.0 cm DOPPLER AV Peak Velocity 107.2 cm/s AV Peak Gradient 4.6 mmHg AV Mean Gradient 3.0 mmHg AV Velocity Time Integral 28.6 cm LVOT Peak Velocity 80.3 cm/s LVOT Peak Gradient 2.6 mmHg LVOT Velocity Time Integral 16.7 cm LVOT Cardiac Index 2022.4 cm?/min?m? AV Area Cont Eq vti 2.4 cm? AV Area Cont Eq pk 3.1 cm? MV Area PHT 3.2 cm? MR Peak Velocity 349.0 cm/s MR Peak Gradient 48.7 mmHg Mitral E Point Velocity 81.5 cm/s Mitral A Point Velocity 26.2 cm/s Mitral E to A Ratio 3.1 LV E' Lateral Velocity 9.4 cm/s Mitral E to LV E' Lateral Ratio 8.7 LV E' Septal Velocity 6.7 cm/s Mitral E to LV E' Septal Ratio 12.1 TR Peak Velocity 222.0 cm/s TR Peak Gradient 19.7 mmHg PV Peak Velocity 119.0 cm/s PV Peak Gradient 5.7 mmHg FINDINGS Left Ventricle Normal left ventricular size. Mild LVH. Normal left ventricular diastolic filling pattern for age. The ejection fraction is visually estimated at 40-45%. Global left ventricular systolic function is mildly decreased. Right Ventricle The right ventricle is normal in size and systolic function. The estimated right ventricular systolic pressure, 39 mmHg. RAP 15. Left Atrium The left atrium is normal by two-dimensional, color flow and Doppler imaging with no structural abnormalities, no thrombus formation present. Right Atrium The right atrium is normal by two-dimensional imaging, color flow and Doppler imaging with no structural abnormalities, no thrombus formation present. Atrial Septum The interatrial septum appears normal with no evidence of a shunt. Aorta The aorta is normal by two-dimensional, color flow and Doppler interrogation. Mitral Valve The mitral valve is normal by two-dimensional, color flow and Doppler interrogation. Mild mitral regurgitation. Aortic Valve Aortic valve sclerosis. Tricuspid Valve The tricuspid valve is normal by two-dimensional, color flow and Doppler interrogation. There is mild tricuspid valve regurgitation. Pulmonic Valve The pulmonic valve is not well visualized. There is no significant pulmonic valve regurgitation. Vessels Dilated inferior vena cava. Pericardium The pericardium is normal by two-dimensional imaging. There is no significant pericardial effusion. CONCLUSIONS Indication: New onset Afib and CHF Normal LV size. Mild LVH. Estimated EF at 40-45%. Global LV systolic function is mildly decreased. Normal Rv size and function. Estimated RVSP, 39 mmHg. RAP 15 mm hg. Mild MR and TR. Moderate aortic valve sclerosis. Mild TR. Dilated IVC. Fortino Strong (Electronically Signed) Final Date: 29 August 2024 23:27
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
--- NOTE | 2024-08-27 20:48 | PC.NURSE ---
assisted pt up to bsc after orthostatic vitals. complete linen change, zoya care and brief in place.
[2024-08-27] MEDS: ATORVASTATIN CALCIUM 20 MG TABLET 40 MG PO (20:56)
[2024-08-27] MEDS: ENOXAPARIN SOD INJ 100 MG/ML SYRINGE 95 MG SC (20:57)
[2024-08-27] MEDS: Magnesium Sulfate 4 GM Ivpb 4 GM/50 ML BAG IV (21:13)
[2024-08-27] MEDS: ACETAMINOPHEN 325 MG TABLET 650 MG PO (21:13)
[2024-08-27] MEDS: ONDANSETRON INJ 2 MG/ML INJ 2 ML 4 MG IVP (22:37)
[2024-08-27 22:39] LABS: Troponin I 0.067 ng/mL (0.0-0.045)
[2024-08-27] MEDS: hydrALAZINE INJ 20 MG/ML VIAL 10 MG IVP (22:44)
[2024-08-28] VITALS (9 sets, daily range): BP systolic 138–168; BP diastolic 68–97; PULSE 57–80; RESP 12–23; TEMP 36.1–36.4; O2SAT 94–97; BMI 13.0
[2024-08-28 05:29] LABS: Basophils # (Auto) 0.0 Thou/mm3 (0.0-0.2); Basophils % (Auto) 0 % (0-2.5); Eosinophils # (Auto) 0.3 Thou/mm3 (0.0-0.5); Eosinophils % (Auto) 3 % (0-10); Hematocrit 30.5 % (41.0-53.0); Hemoglobin 10.5 g/dL (13.5-16.0); Immature Granulocytes Auto 0.02 Thou/mm3 (0.00-0.00); Immature Reticulocyte Fraction 15.2 % (2.3-13.4); Lymphocytes # (Auto) 0.5 Thou/mm3 (1.0-4.8); Lymphocytes % (Auto) 6 % (10-50); Mean Corpuscular HGB Conc 34.4 g/dl (31.0-37.0); Mean Corpuscular Hemoglobin 33.7 pg (25.0-35.0); Mean Corpuscular Volume 98 fL (80-100); Monocytes # (Auto) 0.5 Thou/mm3 (0.0-0.8); Monocytes % (Auto) 6 % (0-12); Neutrophils # (Auto) 7.3 Thou/mm3 (1.8-7.7); Neutrophils % (Auto) 85 % (37-80); Nucleated Red Blood Cell # 0.00 Thou/mm3 (0.00-0.00); Nucleated Red Blood Cell % 0 /100 WBC (0); Platelet Count 243 Thou/mm3 (140-440); RDW Standard Deviation 51.4 fL (35.1-43.9); Red Blood Count 3.12 Miln/mm3 (4.50-5.90); Reticulocyte % (Auto) 2.1 % (0.5-1.5); Reticulocyte Absolute Auto 65.2 Biln/L (25.0-75.0); Reticulocyte Hgb Content 37.5 pg (28.0-35.0); White Blood Count 8.6 Thou/mm3 (3.8-10.6)
[2024-08-28 05:51] LABS: Glucose Estimated Average 131 mg/dL (80-131); Hemoglobin A1C 6.2 % Hgb (4.8-6.0)
[2024-08-28 05:59] LABS: Folate 11.43 ng/mL (>5.38); Vitamin B12 444 pg/mL (211-911)
[2024-08-28 06:02] LABS: Ferritin 64 ng/mL (10.5-307.3); Iron 24 mcg/dL (65-175); Percent Iron Saturation 8 % (20-55); Total Iron Binding Capacity 267 mcg/dL (250-425); Unsaturated Iron Binding 243 (225-295)
[2024-08-28 06:08] LABS: Alanine Aminotransferase 21 U/L (10-49); Albumin, Serum 3.3 gm/dL (3.4-4.8); Albumin/Globulin Ratio 1.4 (1.2-2.2); Alkaline Phosphatase 69 U/L (46-116); Anion Gap 10 (7-16); Aspartate Amino Transferase 18 U/L (0-34); BUN/Creatinine Ratio 15 Ratio (12-20); Bilirubin,Total 0.7 mg/dL (0.3-1.2); Blood Urea Nitrogen 15 mg/dL (9-23); Calcium 8.3 mg/dL (8.3-10.6); Calcium (Corrected) 8.9 mg/dL (8.5-10.1); Carbon Dioxide 23.2 mMol/L (20.0-31.0); Cardiac Risk Estimate 3.7 RATIO (4.0-6.7); Chloride 109 mMol/L (98-107); Cholesterol 111 mg/dL (132-200); Creatinine (Component) 1.0 mg/dL (0.6-1.3); Estimated Creatinine Clearance 69.9 mL/min (>60); Globulin 2.4 gm/dL (2.3-3.5); Glucose 152 mg/dL (74-106); HDL Cholesterol 30 mg/dL (40-60); LDL Cholesterol,Calculated 62 mg/dL (0-130); Osmolality,Calculated 286 (275-295); Potassium 2.9 mMol/L (3.4-5.1); Sodium 142 mMol/L (136-145); Total Protein 5.7 gm/dL (5.7-8.2); Triglycerides 94 mg/dL (30-150); eGFR > 60 See Note
--- NOTE | 2024-08-28 06:09 | PC.NURSE ---
this commercial underwriter did medication recon. patient states he is unable to have his abitaterone medication brought into the hospital. per the patient no one has is house nath. unable to administer morning dose
[2024-08-28 06:11] LABS: Troponin I 0.117 ng/mL (0.0-0.045)
--- NOTE | 2024-08-28 08:12 | EKG_ITS ---
[facility] Test Date: 2024-08-28 Pat Name: BRIANNE DAVIS [facility] Gender: Male Social Work Msw: FLORENTIN : 1945 Requested By: Catarino Lakhani Order Number: [id number] Reading MD: Catarino Lakhani Measurements Intervals Melvin Rate: 67 P: NC: QRS: 18 QRSD: 134 T: 0 QT: 290 QTc: 307 Interpretive Statements ATRIAL FIBRILLATION INTRAVENTRICULAR CONDUCTION DELAY POSSIBLE SEPTAL MYOCARDIAL INFARCTION , PROBABLY OLD Compared to ECG 08/27/2024 13:06:23 Intraventricular conduction delay now present Myocardial infarct finding now present Right bundle-branch block no longer present Left anterior fascicular block no longer present /store/S0/[id number]/ecg/[id number].pdf
[2024-08-28] MEDS: POTASSIUM CHL 10 mEq IVPB 10 MEQ/100 ML BAG 100 MEQ IV ×4 (08:35→12:00)
[2024-08-28] MEDS: ASPIRIN EC 81 MG TABEC PO (08:42)
[2024-08-28] MEDS: ENOXAPARIN SOD INJ 100 MG/ML SYRINGE 95 MG SC ×2 (08:43→20:36)
[2024-08-28] MEDS: Magnesium Sulfate 2 GM Ivpb 2 GM/50 ML BAG IV (08:53)
[2024-08-28] MEDS: POTASSIUM CHLORIDE 10% 20 MEQ/15 ML UDC 40 MEQ PO (08:59)
[2024-08-28] MEDS: ONDANSETRON INJ 2 MG/ML INJ 2 ML 4 MG IVP (09:11)
[2024-08-28] MEDS: ACETAMINOPHEN 325 MG TABLET 650 MG PO (09:11)
[2024-08-28 09:21] LABS: Magnesium 1.7 mg/dL (1.6-2.6)
--- NOTE | 2024-08-28 11:11 | PC.SS ---
Patient is a 78 year old male presenting to the hospital for new onset AFIB CHF. PRINTED CIRCUIT BOARD ASSEMBLER made contact with patient at bedside and explained role and reason for visit. Pt. was alert and oriented. Pt. confirmed demographic information and stated he lives alone. Pt. stated that his next of kin is Adam Oxana, best friend, ph: [phone]. ?Pt. reported that he does not require any DME for ADL?s. Pt. stated he has a cane but does not need it. Pt. PCP is Dr. Kraus at [facility] and pharmacy at [facility] on [address]. ?Pt. reported that he drove himself to the hospital, PRINTED CIRCUIT BOARD ASSEMBLER discussed safe d/c plan for when he is medically cleared. Pt. stated that when medically clear he will ask a friend to drive him home. PCP: DR. KRAUS Next of Kin: Adam Daigle ph:[phone] d/c: home
--- NOTE | 2024-08-28 11:25 | PC.SS ---
rounding note: Pt. pending cardio consult and echo.
[2024-08-28] MEDS: Magnesium Sulfate 4 GM Ivpb 4 GM/50 ML BAG IV (12:06)
[2024-08-28] MEDS: FUROSEMIDE INJ 10 MG/ML 4ML VIAL 40 MG IVP (12:13)
[2024-08-28] MEDS: INSULIN LISPRO (AdmeLOG) 1 UNIT/0.01 ML UNIT SC ×2 (12:22→20:42)
--- NOTE | 2024-08-28 12:55 | ESPR_ITS ---
<Statement entered by Jacinto Henning MD - 08/28/24 18:10> Patient seen and examined at bedside. I discussed and supervised with the college intern physician who took care of this patient. I personally saw and examined the patient. I agree with most of the assessment and plan. New onset afib without RVR, treated with therapeutic Lovenox. Pending echo, cardiology recs. Mild troponin elevation, likely NSTEMI type II, will trend. Concern for new CHF given BLE edema, elevated BNP. Schedule lasix. Plan of care discussed with attending Dr. Perez. Jacinto Henning MD PGY-2 Documentation for date of: 08/28/24 Subjective Subjective Interval history: Patient reports persistent dizziness this morning with two episodes triggered by lying flat and looking upward. He states symptoms were intense but self- resolving. He describes this as dizziness rather than spinning, though he has had prior episodes of vertigo in the past. He believes he vomited either last night or early this morning, with nausea typically accompanying these dizzy spells. Patient finds meclizine helpful, and reports Zofran was given last night, which he tolerated. He has not ambulated yet today but used a bedside commode last night and had a bowel movement. He notes chronic constipation and a colonoscopy scheduled on September 03. He had lower abdominal pain relieved after Rocha catheter placement and now has no dysuria. Denies chest pain or current palpitations. Reports mild, transient shortness of breath following dizzy episodes. No fevers, cough, or new neuro symptoms. He experiences intermittent hot/cold spells. Exam Vital Signs Temp Pulse Resp BP Pulse Ox O2 Del Method 97.3 F 74 20 168/97 H 95 Room Air 08/28/24 08:00 08/28/24 12:13 08/28/24 08:00 08/28/24 12:13 08/28/24 08:00 08/28/24 08:00 Narrative Exam GENERAL: Awake, answering questions appropriately, appears stated age HEENT: NC/AT. Moist mucosa. PERRLA/EOMI. CARDIO: Irregularly irregular, no obvious murmurs, no JVD. PULM: No coughing or visible SOB. Lungs CTA B/L. GI: Abdomen soft, NT/ND, +BS. SKIN/MSK/EXT: +2 pitting edema up to bilateral feet. No wounds/discoloration/rashes/amputations noted. +Pedal pulses present B/L. NEURO: Oriented x3, cranial nerves II to XII grossly intact, muscle strength 5 out of 5 on bilateral upper and lower extremities, Moves extremities x4, no focal neurologic deficits. Objective Labs 08/29/24 05:05 08/29/24 05:05 Labs: Laboratory Results - last 24 hr 08/27/24 08/27/24 08/27/24 12:59 16:25 17:41 WBC 7.6 RBC 3.24 L Hgb 11.0 L Hct 31.6 L MCV 98 MCH 34.0 MCHC 34.8 RDW Std Deviation 51.7 H Plt Count 242 Neut % (Auto) 63 Lymph % (Auto) 25 [place] % (Auto) 7 Eos % (Auto) 3 Baso % (Auto) 1 Neut # (Auto) 4.8 Lymph # (Auto) 1.9 [place] # (Auto) 0.6 Eos # (Auto) 0.3 Baso # (Auto) 0.1 Immature Gran # (Auto) 0.02 H Absolute Nucleated RBC 0.00 Immature Gran % 0 Nucleated RBC % 0 Retic Count (auto) Absolute Retic Immature Retic Fraction Retic Hgb Content CHr PT 12.6 H INR 1.2 APTT 26.2 Sodium 143 Potassium 3.2 L Chloride 108 H Carbon Dioxide 24.8 Anion Gap 10 BUN 18 Creatinine 1.0 Estim Creat Clear Calc 69.9 eGFR > 60 BUN/Creatinine Ratio [address] Glu mg/dL Hemoglobin A1c Calculated Osmolality 289 Calcium 8.8 Corrected Calcium 9.0 Magnesium 1.3 L Iron TIBC Iron Saturation Unsat Iron Binding Ferritin Total Bilirubin 0.8 AST 20 ALT 25 Alkaline Phosphatase 74 Troponin I 0.046 H* 0.050 H* B-Natriuretic Peptide 347 H Total Protein 6.4 Albumin 3.8 Globulin 2.6 Albumin/Globulin Ratio 1.5 Triglycerides Cholesterol LDL Cholesterol, Calc HDL Cholesterol Cholesterol/HDL Ratio Vitamin B12 Folate Ur Collection Type Clean Catch Urine Color Lt-Yellow Urine Clarity Turbid A Urine pH 6.5 Ur Specific Jeff 1.014 Urine Protein Negative Urine Glucose (UA) Negative Urine Ketones Negative Urine Blood Negative Urine Nitrite Negative Urine Bilirubin Negative Urine Urobilinogen (Auto) Negative Ur Leukocyte Esterase Negative Urine RBC 3 Urine WBC 2 Ur Squamous Epith Cells 2 Amorphous Crystals Present A Urine Bacteria None 08/27/24 08/28/24 21:55 04:27 WBC 8.6 RBC 3.12 L Hgb 10.5 L Hct 30.5 L MCV 98 MCH 33.7 MCHC 34.4 RDW Std Deviation 51.4 H Plt Count 243 Neut % (Auto) 85 H Lymph % (Auto) 6 L [place] % (Auto) 6 Eos % (Auto) 3 Baso % (Auto) 0 Neut # (Auto) 7.3 Lymph # (Auto) 0.5 L [place] # (Auto) 0.5 Eos # (Auto) 0.3 Baso # (Auto) 0.0 Immature Gran # (Auto) 0.02 H Absolute Nucleated RBC 0.00 Immature Gran % 0 Nucleated RBC % 0 Retic Count (auto) 2.1 H Absolute Retic 65.2 Immature Retic Fraction 15.2 H Retic Hgb Content CHr 37.5 H PT INR APTT Sodium 142 Potassium 2.9 L Chloride 109 H Carbon Dioxide 23.2 Anion Gap 10 BUN 15 Creatinine 1.0 Estim Creat Clear Calc 69.9 eGFR > 60 BUN/Creatinine Ratio [address] Glu mg/dL 131 Hemoglobin A1c 6.2 H Calculated Osmolality 286 Calcium 8.3 Corrected Calcium 8.9 Magnesium 1.7 Iron 24 L TIBC 267 Iron Saturation 8 L Unsat Iron Binding 243 Ferritin 64 Total Bilirubin 0.7 AST 18 ALT 21 Alkaline Phosphatase 69 Troponin I 0.067 H* 0.117 H* B-Natriuretic Peptide Total Protein 5.7 Albumin 3.3 L D Globulin 2.4 Albumin/Globulin Ratio 1.4 Triglycerides 94 Cholesterol 111 L LDL Cholesterol, Calc 62 HDL Cholesterol 30 L Cholesterol/HDL Ratio 3.7 L Vitamin B12 444 Folate 11.43 Ur Collection Type Urine Color Urine Clarity Urine pH Ur Specific Jeff Urine Protein Urine Glucose (UA) Urine Ketones Urine Blood Urine Nitrite Urine Bilirubin Urine Urobilinogen (Auto) Ur Leukocyte Esterase Urine RBC Urine WBC Ur Squamous Epith Cells Amorphous Crystals Urine Bacteria Quality Measures Quality Measures VTE prophylaxis Advance care planning discussed with:: patient Assessment & Plan Assessment Current Active Medications: Generic Name Dose Route Start Last Admin Trade Name Freq PRN Reason Stop Dose Admin Acetaminophen 650 mg 08/27/24 19:45 08/28/24 09:11 Acetaminophen 325 Mg Tablet PO 09/26/24 19:44 650 mg Q6H PRN Administration PAIN SCALE 1-3 (mild Aspirin 81 mg 08/28/24 09:00 08/28/24 08:42 Aspirin Ec 81 Mg Tabec PO 09/27/24 08:59 81 mg QDAY CRICKET Administration Atorvastatin Calcium 40 mg 08/27/24 21:00 08/27/24 20:56 Atorvastatin Calcium 20 Mg Tablet PO 09/26/24 20:59 40 mg HS CRICKET Administration Dextrose 25 ml 08/27/24 19:45 Dextrose 50%-Water Inj 50 Ml Syringe IV 09/26/24 19:44 Q15MIN PRN BG 50-70 responsive npo pt Dextrose 50 ml 08/27/24 19:45 Dextrose 50%-Water Inj 50 Ml Syringe IV 09/26/24 19:44 Q15MIN PRN BG <50 OR BG <70 & pt unresponsive Enoxaparin Sodium 95 mg 08/27/24 21:00 08/28/24 08:43 Enoxaparin Sod Inj 100 Mg/Ml Syringe 1 mg/kg (95 mg) 09/10/24 20:59 95 mg SC Administration BID CRICKET Furosemide 40 mg 08/27/24 19:50 08/28/24 12:13 Furosemide Inj 10 Mg/Ml 4ml Vial IVP 09/26/24 19:49 40 mg QDAY CRICKET Administration Glucagon 1 mg 08/27/24 19:45 Glucagon Inj 1 Mg Vial IM Q15MIN PRN BG <70, and no IV access Hydralazine HCl 10 mg 08/27/24 19:52 08/27/24 22:44 Hydralazine Inj 20 Mg/Ml Vial IVP 09/26/24 19:51 10 mg Q6H PRN Administration Systolic >160, Hr <75 Magnesium Sulfate 4 gm in 50 mls @ 12.5 mls/hr 08/28/24 11:00 08/28/24 12:06 Magnesium Sulfate Ivpb IV 08/28/24 14:59 12.5 mls/hr X1 ONE Administration Insulin Human Lispro 0 unit 08/27/24 21:00 08/28/24 12:22 Insulin Lispro (Admelog) 1 Unit/0.01 Ml Unit SC 09/26/24 20:59 1 unit ACHS CRICKET Administration Protocol Non-Formulary Medication 1,000 mg 08/28/24 05:00 08/28/24 06:09 Abiraterone PO 09/27/24 04:59 Not Given ACBR CRICKET Ondansetron HCl 4 mg 08/27/24 19:45 08/28/24 09:11 Ondansetron Inj 2 Mg/Ml Inj 2 Ml IVP 09/26/24 19:44 4 mg Q6H PRN Administration NAUSEA OR VOMITING Protocol Sennosides 1 tab 08/27/24 19:45 08/28/24 09:11 Senna Tablet PO 09/26/24 19:44 1 tab QDAY PRN Administration constipation Protocol Plan 78-year-old male with PMH of prostate cancer (on abiraterone), insulin-dependent T2DM, HTN, and chronic constipation, admitted for new-onset atrial fibrillation, dizziness, and concern for CHF, now with episodes of VT and electrolyte derangements. #New-Onset Atrial Fibrillation EKG: Afib with SVR, intraventricular conduction delay, possible old septal CO No history of anticoagulation CHADS-VASc = 4 (HTN, DM, age >75) --> high stroke risk HAS-BLED = 2 (age, meds) --> moderate bleeding risk Plan: * Continue therapeutic Lovenox * Cardiology consulted, awaiting input on long-term rate/rhythm control and anticoagulation * TTE pending * Telemetry monitoring #Non-Sustained Ventricular Tachycardia Two brief episodes this morning with dizziness Hypokalemia and hypomagnesemia likely contributors Troponin trending up (now 0.117), no ischemic symptoms Plan: * Continue telemetry * Continue repleting K and Mg aggressively (goal K > 4.0, Mg > 2.0) * Cardiology aware * Continue serial troponins and monitor for further arrhythmia * Hold QT-prolonging meds #Hypokalemia (K = 2.9) Likely multifactorial: Lasix-induced + abiraterone (androgen synthesis inhibitor) known to cause mineralocorticoid excess (hypokalemia, HTN, fluid retention) Plan: * Continue aggressive repletion with IV and PO potassium * Monitor electrolytes q6?8h * Maintain K > 4, Mg > 2 * Flag abiraterone as possible contributor --> oncology follow-up #Likely New CHF?? (undiagnosed) Bilateral LE edema, BNP 347, possible chronic Afib CXR with mild hyperexpansion, no overt pulmonary edema Denies orthopnea or PND Plan: * Continue IV Lasix 40 mg daily * Strict I/Os, daily weights * Echo pending * Cardiology to evaluate if GDMT initiation appropriate #Hypertensive Emergency / Type II NSTEMI SBP peaked at 187, currently 168/97 troponin elevated without anginal symptoms Plan: * Permissive HTN, goal gradual reduction * Resume home lisinopril once stable * PRN hydralazine for SBP >180 * Continue troponin trending #Dizziness ? Likely Multifactorial (BPPV vs cardiogenic vs chemo-related) Triggered by positional changes, especially looking up --> suggests possible BPPV Also likely worsened by Afib, electrolyte imbalance Plan: * Continue Zofran PRN * Zofran for nausea * Bedside Dorinda-Hallpike when safe * Consider vestibular PT if persistent * Monitor for recurrence #Iron Deficiency Anemia Hgb dropped from 11 --> 10.5, iron 24, saturation 8%, MCV 98 Plan: * Ferritin, retic, B12/folate back --> normal * Monitor CBC, no transfusion needed * Colonoscopy already scheduled for 09/03 * Outpatient GI follow-up #Urinary Retention / Rocha Lower abdominal pain resolved with Rocha insertion Likely chronic retention Plan: * Rocha to remain for now * Urology outpatient referral * Monitor for signs of infection #Type 2 Diabetes Mellitus ? Insulin Dependent A1c = 6.2 --> well-controlled Plan: * Continue sliding scale insulin * Carb-consistent diet * Monitor glucose during hospital stay #Prostate Cancer on Abiraterone Follows with [facility] Abiraterone 250 mg x4 daily; on treatment >1 year Plan: * Continue home abiraterone * Monitor for electrolyte side effects * Oncology to continue outpatient management #Mild Ascending Thoracic Aortic Aneurysm Incidental on CTA Plan: * Outpatient CT chest f/u per radiology recs * Monitor BP closely * Outpatient vascular referral if needed #Pulmonary Nodule (LLL 4 mm) Incidental finding on CTA Plan: * Outpatient follow up #Mild Right Upper Lobe Pneumonia (Asymptomatic) No fever, no cough, no leukocytosis Plan: * No antibiotics at this time * Monitor for symptoms #Chronic Constipation Incomplete evacuation, planned colonoscopy Plan: * Continue bowel regimen (Senna PRN) * Maintain hydration * Outpatient colonoscopy 09/03 Health Maintenance: Lines: Rocha catheter, PIV Diet: Cardiac, carb-consistent Activity: Bedrest for now; PT eval pending DVT Prophylaxis: Covered by therapeutic Lovenox GI Prophylaxis: Not indicated Disposition: Pending cardiology recs and echo Code status: Full ----- Plan discussed with attending physician Dr. Perez and senior resident Dr. Tayo MD PGY-1 Internal Medicine Attending Provider Attestation/Addendum Karen, Traci Perez, DO, attest that I was physically present for the nath portions of the service and evaluated the patient with the resident and I reviewed and discussed the case with the resident and agree with the resident's findings and plans of care as documented above Patient seen eval this a.m. He states that he is feeling much better today. He complains of dizziness when he looks up and lays flat, but improves if he lays on his side. He states that the room seems like it is spinning when he does get the bouts of dizziness and recovers after rest. Suspect BPPV. No nystagmus noted on exam. Patient takes abiraterone with prednisone at home due to prostate cancer which may be the cause of his hypokalemia. Suspect that electrolyte imbalance may also be contributing to patient's new onset A-fib. He is currently rate controlled and is on full dose Lovenox. There may also be a component of bradycardia that can be contributing to the dizziness. Will repeat electrolytes and replete as needed. Patient has bilateral lower extremity edema and started on IV Lasix 40 mg daily. Will continue with current management and follow-up with cardiology recommendations.
--- NOTE | 2024-08-28 15:49 | PC.SS ---
Rounding update: pt. pending echo, cardio, and PT.
[2024-08-28 16:34] LABS: Potassium 3.5 mMol/L (3.4-5.1)
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
[2024-08-28] MEDS: ATORVASTATIN CALCIUM 20 MG TABLET 40 MG PO (20:36)
[2024-08-28 22:16] LABS: Troponin I 0.064 ng/mL (0.0-0.045)
[2024-08-28] MEDS: MELATONIN 3 MG TABLET 6 MG PO (22:59)
[2024-08-29] VITALS (13 sets, daily range): BP systolic 132–162; BP diastolic 60–90; PULSE 39–76; RESP 16–21; TEMP 36.1–36.8; O2SAT 90–96; BMI 13.0
[2024-08-29] MEDS: ONDANSETRON INJ 2 MG/ML INJ 2 ML 4 MG IVP (00:16)
[2024-08-29 05:43] LABS: Basophils # (Auto) 0.0 Thou/mm3 (0.0-0.2); Basophils % (Auto) 1 % (0-2.5); Eosinophils # (Auto) 0.4 Thou/mm3 (0.0-0.5); Eosinophils % (Auto) 6 % (0-10); Hematocrit 30.9 % (41.0-53.0); Hemoglobin 10.5 g/dL (13.5-16.0); Immature Granulocytes Auto 0.01 Thou/mm3 (0.00-0.00); Lymphocytes # (Auto) 1.2 Thou/mm3 (1.0-4.8); Lymphocytes % (Auto) 20 % (10-50); Mean Corpuscular HGB Conc 34.0 g/dl (31.0-37.0); Mean Corpuscular Hemoglobin 35.0 pg (25.0-35.0); Mean Corpuscular Volume 103 fL (80-100); Monocytes # (Auto) 0.4 Thou/mm3 (0.0-0.8); Monocytes % (Auto) 7 % (0-12); Neutrophils # (Auto) 3.9 Thou/mm3 (1.8-7.7); Neutrophils % (Auto) 66 % (37-80); Nucleated Red Blood Cell # 0.00 Thou/mm3 (0.00-0.00); Nucleated Red Blood Cell % 0 /100 WBC (0); Platelet Count 227 Thou/mm3 (140-440); RDW Standard Deviation 54.9 fL (35.1-43.9); Red Blood Count 3.00 Miln/mm3 (4.50-5.90); White Blood Count 6.0 Thou/mm3 (3.8-10.6)
[2024-08-29 06:10] LABS: Alanine Aminotransferase 18 U/L (10-49); Albumin, Serum 3.3 gm/dL (3.4-4.8); Albumin/Globulin Ratio 1.6 (1.2-2.2); Alkaline Phosphatase 63 U/L (46-116); Anion Gap 8 (7-16); Aspartate Amino Transferase 14 U/L (0-34); BUN/Creatinine Ratio 15 Ratio (12-20); Bilirubin,Total 0.8 mg/dL (0.3-1.2); Blood Urea Nitrogen 16 mg/dL (9-23); Calcium 8.4 mg/dL (8.3-10.6); Calcium (Corrected) 9.0 mg/dL (8.5-10.1); Carbon Dioxide 27.4 mMol/L (20.0-31.0); Chloride 108 mMol/L (98-107); Creatinine (Component) 1.1 mg/dL (0.6-1.3); Estimated Creatinine Clearance 63.6 mL/min (>60); Globulin 2.1 gm/dL (2.3-3.5); Glucose 132 mg/dL (74-106); Magnesium 1.7 mg/dL (1.6-2.6); Osmolality,Calculated 288 (275-295); Phosphorous 2.6 mg/dL (2.4-5.1); Potassium 4.2 mMol/L (3.4-5.1); Sodium 143 mMol/L (136-145); Total Protein 5.4 gm/dL (5.7-8.2); eGFR > 60 See Note
[2024-08-29] MEDS: ASPIRIN EC 81 MG TABEC PO (08:54)
[2024-08-29] MEDS: ENOXAPARIN SOD INJ 100 MG/ML SYRINGE 95 MG SC (08:54)
[2024-08-29] MEDS: FUROSEMIDE INJ 10 MG/ML 4ML VIAL 40 MG IVP (08:57)
[2024-08-29] MEDS: Magnesium Sulfate 4 GM Ivpb 4 GM/50 ML BAG IV (09:03)
[2024-08-29] MEDS: METOPROLOL SUCCINATE XL 25 MG TABCR PO (09:25)
[2024-08-29] MEDS: MECLIZINE HCL 25 MG TABLET 50 MG PO (10:09)
--- NOTE | 2024-08-29 10:31 | ESPR_ITS ---
<Statement entered by Jacinto Henning MD - 08/29/24 16:12> Patient seen and examined at bedside. I discussed and supervised with the intern product marketing manager physician who took care of this patient. I personally saw and examined the patient. I agree with most of the assessment and plan. Echo pending. Patient on metoprolol, eliquis, lasix, and lisinopril per cardiac recommendations. Plan of care discussed with attending Dr. Perez. Jacinto Henning MD PGY-2 Documentation for date of: 08/29/24 Subjective Subjective Interval history: Patient reports continued dizziness and feeling ?fuzzy,? though improved compared to yesterday. Denies chest pain, chest pressure, palpitations, or recurrence of the off-balance episodes from yesterday. States that meclizine has helped both his dizziness and nausea; however, Zofran has not been effective, and he prefers to continue with meclizine. He reports reduced appetite and eats about half of his meals, stopping due to feeling sick afterward. He denies vomiting. Denies shortness of breath, chest tightness, or new/worsening lower extremity swelling. Rocha catheter is draining well with no discomfort or suprapubic pain. Exam Vital Signs Temp Pulse Resp BP Pulse Ox O2 Del Method 97.0 F 63 17 154/79 H 95 Room Air 08/29/24 08:00 08/29/24 09:25 08/29/24 08:00 08/29/24 09:25 08/29/24 08:00 08/29/24 08:00 Narrative Exam General: Awake, alert, answers questions appropriately, appears stated age. HEENT: Normocephalic, atraumatic. Pupils equal, round, and reactive to light; extraocular movements intact. Moist mucous membranes. Neck: Supple, no JVD, no lymphadenopathy. Cardiovascular: Irregularly irregular rhythm. No murmurs, rubs, or gallops. No JVD. Pulmonary: Lungs clear to auscultation bilaterally. No increased work of breathing, no wheezes or rales. Abdomen: Soft, non-tender, non-distended. Positive bowel sounds. No organomegaly. Extremities: +2 pitting edema to bilateral feet. No cyanosis, clubbing, or tenderness. Pedal pulses palpable bilaterally. Skin: Warm, dry. No rashes, lesions, or breakdowns noted. Neurologic: Alert and oriented to person, place, and time. Cranial nerves II?XII grossly intact. Moves all four extremities with full strength (5/5). No focal neurologic deficits. Objective Labs 08/29/24 05:05 08/29/24 05:05 Labs: Laboratory Results - last 24 hr 08/28/24 08/28/24 08/29/24 16:12 21:50 05:05 WBC 6.0 RBC 3.00 L Hgb 10.5 L Hct 30.9 L MCV 103 H MCH 35.0 MCHC 34.0 RDW Std Deviation 54.9 H Plt Count 227 Neut % (Auto) 66 Lymph % (Auto) 20 [place] % (Auto) 7 Eos % (Auto) 6 Baso % (Auto) 1 Neut # (Auto) 3.9 Lymph # (Auto) 1.2 [place] # (Auto) 0.4 Eos # (Auto) 0.4 Baso # (Auto) 0.0 Immature Gran # (Auto) 0.01 H Absolute Nucleated RBC 0.00 Immature Gran % 0 Nucleated RBC % 0 Sodium 143 Potassium 3.5 D 4.2 D Chloride 108 H Carbon Dioxide 27.4 Anion Gap 8 BUN 16 Creatinine 1.1 Estim Creat Clear Calc 63.6 eGFR > 60 BUN/Creatinine Ratio 15 Glucose 132 H Calculated Osmolality 288 Calcium 8.4 Corrected Calcium 9.0 Phosphorus 2.6 Magnesium 1.7 Total Bilirubin 0.8 AST 14 ALT 18 Alkaline Phosphatase 63 Troponin I 0.064 H* Total Protein 5.4 L Albumin 3.3 L Globulin 2.1 L Albumin/Globulin Ratio 1.6 Quality Measures Quality Measures VTE prophylaxis Advance care planning discussed with:: patient Assessment & Plan Assessment Current Active Medications: Generic Name Dose Route Start Last Admin Trade Name Freq PRN Reason Stop Dose Admin Acetaminophen 650 mg 08/27/24 19:45 08/28/24 09:11 Acetaminophen 325 Mg Tablet PO 09/26/24 19:44 650 mg Q6H PRN Administration PAIN SCALE 1-3 (mild Aspirin 81 mg 08/28/24 09:00 08/29/24 08:54 Aspirin Ec 81 Mg Tabec PO 09/27/24 08:59 81 mg QDAY CRICKET Administration Atorvastatin Calcium 40 mg 08/27/24 21:00 08/28/24 20:36 Atorvastatin Calcium 20 Mg Tablet PO 09/26/24 20:59 40 mg HS CRICKET Administration Abiraterone Acetate 0 ea 08/29/24 10:30 250 Mg Tablet PO 09/28/24 10:29 DAILY CRICKET Dextrose 25 ml 08/27/24 19:45 Dextrose 50%-Water Inj 50 Ml Syringe IV 09/26/24 19:44 Q15MIN PRN BG 50-70 responsive npo pt Dextrose 50 ml 08/27/24 19:45 Dextrose 50%-Water Inj 50 Ml Syringe IV 09/26/24 19:44 Q15MIN PRN BG <50 OR BG <70 & pt unresponsive Enoxaparin Sodium 95 mg 08/27/24 21:00 08/29/24 08:54 Enoxaparin Sod Inj 100 Mg/Ml Syringe 1 mg/kg (95 mg) 09/10/24 20:59 95 mg SC Administration BID CRICKET Furosemide 40 mg 08/27/24 19:50 08/29/24 08:57 Furosemide Inj 10 Mg/Ml 4ml Vial IVP 09/26/24 19:49 40 mg QDAY CRICKET Administration Glucagon 1 mg 08/27/24 19:45 Glucagon Inj 1 Mg Vial IM Q15MIN PRN BG <70, and no IV access Hydralazine HCl 10 mg 08/27/24 19:52 08/27/24 22:44 Hydralazine Inj 20 Mg/Ml Vial IVP 09/26/24 19:51 10 mg Q6H PRN Administration Systolic >160, Hr <75 Magnesium Sulfate 4 gm in 50 mls @ 12.5 mls/hr 08/29/24 08:53 08/29/24 09:03 Magnesium Sulfate Ivpb IV 08/29/24 12:52 12.5 mls/hr X1 ONE Administration Insulin Human Lispro 0 unit 08/27/24 21:00 08/29/24 07:30 Insulin Lispro (Admelog) 1 Unit/0.01 Ml Unit SC 09/26/24 20:59 Not Given ACHS [facility] Protocol Lisinopril 20 mg 08/29/24 10:30 Lisinopril 20 Mg Tablet PO 09/28/24 10:29 QDAY [facility] Meclizine HCl 25 mg 08/29/24 09:35 Meclizine Hcl 25 Mg Tablet PO 09/28/24 09:34 TID PRN NAUSEA OR VOMITING Metoprolol Succinate 25 mg 08/29/24 09:15 08/29/24 09:25 Metoprolol Succinate Xl 25 Mg Tabcr PO 09/28/24 09:14 25 mg QDAY CRICKET Administration Pantoprazole Sodium 40 mg 08/29/24 10:30 Pantoprazole 40 Mg Tablet PO 09/28/24 10:29 QDAY CRICKET Prednisone 5 mg 08/29/24 10:30 Prednisone 5 Mg Tablet PO 09/28/24 10:29 QDAY CRICKET Sennosides 1 tab 08/27/24 19:45 08/28/24 09:11 Senna Tablet PO 09/26/24 19:44 1 tab QDAY PRN Administration constipation Protocol Terazosin HCl 5 mg 08/29/24 21:00 Terazosin Hcl 5 Mg Capsule PO 09/28/24 20:59 HS [facility] Plan 78-year-old male with PMH of prostate cancer (on abiraterone), insulin-dependent T2DM, HTN, and chronic constipation, admitted for new-onset atrial fibrillation, dizziness, and concern for CHF, now with episodes of VT and electrolyte derangements. #New-Onset Atrial Fibrillation EKG: Afib with SVR, intraventricular conduction delay, possible old septal AL No history of anticoagulation CHADS-VASc = 5 (HTN, DM, age >75,CHF?) --> high stroke risk HAS-BLED = 2 (age, meds) --> moderate bleeding risk Plan: * Continue therapeutic Lovenox, transitioning to apixaban 5 mg BID today per cardiology * Cardiology started metoprolol tartrate 25 mg BID for rate control * Home lisinopril 20 mg resumed * Telemetry monitoring * TTE pending- called semiconductor processing technician 4 times with no response to know the status of echo * Maintain K > 4.0, Mg > 2.0 #Non-Sustained Ventricular Tachycardia Hypokalemia and hypomagnesemia likely contributors Troponin trending up (now 0.117), no ischemic symptoms Two self-limited episodes yesterday; none today Plan: * Continue telemetry * Monitor for recurrence * Ensure electrolyte optimization * Hold QT-prolonging meds #Hypokalemia (K = 4.2, resolved) #Hypomagnesemia (Mg = 1.7) Likely multifactorial: Lasix-induced + abiraterone (androgen synthesis inhibitor) known to cause mineralocorticoid excess (hypokalemia, HTN, fluid retention) Plan: * Continue aggressive repletion with IV and PO potassium and mag as needed * Continue to monitor * Maintain K > 4, Mg > 2 * Flag abiraterone as possible contributor --> oncology follow-up #Likely New CHF?? (Suspected new diagnosis) Bilateral LE edema, BNP 347, possible chronic Afib CXR with mild hyperexpansion, no overt pulmonary edema Denies orthopnea or PND Plan: * Continue IV Lasix 40 mg daily * Strict I/Os, daily weights * Fluid restriction 1500 cc/day, sodium restriction * Echo pending as explained above * Monitor for volume status improvement #Hypertensive Emergency / Type II NSTEMI SBP peaked at 187, currently 148/60 Troponin peaked at 0.117, now downtrending to 0.064 Plan: * Continue home lisinopril 20 mg * Continue troponin trending #Dizziness ? Likely Multifactorial (BPPV vs cardiogenic vs chemo-related) Improved but still present Triggered by positional changes, especially looking up --> suggests possible BPPV Also likely worsened by Afib, electrolyte imbalance Plan: * Discontinue Zofran * Continue scheduled meclizine * Bedside [place] when safe * Margareth maneuver * Consider vestibular PT if persistent * Monitor for worsening #Iron Deficiency Anemia Hgb dropped from 11 --> 10.5, iron 24, saturation 8%, MCV 98 Plan: * Ferritin, retic, B12/folate back --> normal * Monitor CBC, no transfusion needed * Colonoscopy already scheduled for 09/03 * Outpatient GI follow-up #Urinary Retention / Rocha Lower abdominal pain resolved with Rocha insertion Likely chronic retention Plan: * Rocha to remain for now * Urology outpatient referral * Monitor for signs of infection #Type 2 Diabetes Mellitus ? Insulin Dependent A1c = 6.2 --> well-controlled Plan: * Continue sliding scale insulin * Carb-consistent diet * Monitor glucose during hospital stay #Prostate Cancer on Abiraterone Follows with [facility] Abiraterone 250 mg x4 daily; on treatment >1 year Plan: * Continue home abiraterone * Monitor for electrolyte side effects * Oncology to continue outpatient management #Mild Ascending Thoracic Aortic Aneurysm (4.1cm) Incidental on CTA Plan: (Per Cardiology) * Maintain SBP < 120 * Avoid hydralazine long-term * Yearly imaging to monitor size #Pulmonary Nodule (LLL 4 mm) Incidental finding on CTA Plan: * Outpatient follow up #Mild Right Upper Lobe Pneumonia (Asymptomatic) No fever, no cough, no leukocytosis Plan: * No antibiotics at this time * Monitor for symptoms #Chronic Constipation Incomplete evacuation, planned colonoscopy Plan: * Continue bowel regimen (Senna PRN) * Maintain hydration * Outpatient colonoscopy 09/03 Health Maintenance: Lines: Rocha catheter, PIV Diet: Cardiac, carb-consistent Activity: Bedrest for now; PT eval pending DVT Prophylaxis: Covered by therapeutic Lovenox GI Prophylaxis: Not indicated Disposition: Pending cardiology recs and echo Code status: Full ----- Plan discussed with attending physician Dr. Perez and senior resident Dr. Tayo MD PGY-1 Internal Medicine Attending Provider Attestation/Addendum Karen, Traci Perez, , attest that I was physically present for the nath portions of the service and evaluated the patient with the resident and I reviewed and discussed the case with the resident and agree with the resident's findings and plans of care as documented above Patient seen and evaluated this a.m. Patient noted to be bradycardic while resting, but remains in the 60s when awake. Patient has no active complaints at this time. He continues to have some dizziness, but improved with meclizine. Patient was started on metoprolol yesterday. Will monitor heart rate closely. However, patient has been not had any symptomatic bradycardia. Will follow with cardiology recommendations at this time. Will replete electrolytes as needed. No peripheral edema noted on exam. Lungs are clear to auscultation bilaterally.
[2024-08-29] MEDS: PANTOPRAZOLE 40 MG TABLET PO (10:56)
[2024-08-29] MEDS: ABIRATERONE ACETATE 250 MG TABLET PO (10:57)
[2024-08-29] MEDS: INSULIN LISPRO (AdmeLOG) 1 UNIT/0.01 ML UNIT SC ×2 (11:34→16:49)
--- NOTE | 2024-08-29 14:03 | ESPR_ITS ---
Documentation for date of: 08/29/24 Subjective Subjective Interval history: The patient was seen and examined at the bedside this morning. He reported doing well. He denied any chest palpitation, orthopnea or PND, dizziness was improving, no leg swelling. Vitals were fairly stable with mild hypertension, CBC at baseline, CMP at baseline and WNL. Overnight, patient had 1 events of nonsustained V. tach lasting less than 10 seconds, and was started on metoprolol succinate 25 Mg daily, and titrate up as tolerated. Recommended against hydralazine, as it will increase shearing pressure over the rico of ascending aorta, leading to further aneurysm. Continue with lisinopril 20 Mg daily to maintain systolic blood pressure between 100 to 120 mmHg, to prevent further aneurysmal dilatation of aorta. Continue with furosemide 40 Mg daily, and has been diuresing well. Strictly recommended to keep magnesium and potassium greater than 2 and 4 respectively at all the time. Exam Vital Signs Temp Pulse Resp BP Pulse Ox O2 Del Method 97.2 F 62 18 148/60 H 96 Room Air 08/29/24 12:00 08/29/24 12:00 08/29/24 12:08/29/24 12:08/29/24 12:08/29/24 12:00 Narrative Exam General: No acute distress, Alert and Oriented x 3 HEENT: Moist mucous membranes, oropharynx clear Neck: Supple, No masses, No JVD CVS: Irregularly irregular rate and rhythm, No murmurs, rubs or gallops Lungs: Clear to auscultation with no accessory use, no wheeze no rhonchi Abd: Soft, NT/ND, +BS, no organomegaly Ext: 2+ lower limb pitting edema, warm and well perfused Skin: No rash Psych: Appropriate mood and affect Objective Labs 08/30/24 05:44 08/30/24 05:44 Labs: Laboratory Results - last 24 hr 08/28/24 08/28/24 08/29/24 16:12 21:50 05:05 WBC 6.0 RBC 3.00 L Hgb 10.5 L Hct 30.9 L MCV 103 H MCH 35.0 MCHC 34.0 RDW Std Deviation 54.9 H Plt Count 227 Neut % (Auto) 66 Lymph % (Auto) 20 [place] % (Auto) 7 Eos % (Auto) 6 Baso % (Auto) 1 Neut # (Auto) 3.9 Lymph # (Auto) 1.2 [place] # (Auto) 0.4 Eos # (Auto) 0.4 Baso # (Auto) 0.0 Immature Gran # (Auto) 0.01 H Absolute Nucleated RBC 0.00 Immature Gran % 0 Nucleated RBC % 0 Sodium 143 Potassium 3.5 D 4.2 D Chloride 108 H Carbon Dioxide 27.4 Anion Gap 8 BUN 16 Creatinine 1.1 Estim Creat Clear Calc 63.6 eGFR > 60 BUN/Creatinine Ratio 15 Glucose 132 H Calculated Osmolality 288 Calcium 8.4 Corrected Calcium 9.0 Phosphorus 2.6 Magnesium 1.7 Total Bilirubin 0.8 AST 14 ALT 18 Alkaline Phosphatase 63 Troponin I 0.064 H* Total Protein 5.4 L Albumin 3.3 L Globulin 2.1 L Albumin/Globulin Ratio 1.6 Quality Measures Quality Measures VTE prophylaxis Advance care planning discussed with:: patient Assessment & Plan Assessment Current Active Medications: Generic Name Dose Route Start Last Admin Trade Name Freq PRN Reason Stop Dose Admin Acetaminophen 650 mg 08/27/24 19:45 08/28/24 09:11 Acetaminophen 325 Mg Tablet PO 09/26/24 19:44 650 mg Q6H PRN Administration PAIN SCALE 1-3 (mild Aspirin 81 mg 08/28/24 09:00 08/29/24 08:54 Aspirin Ec 81 Mg Tabec PO 09/27/24 08:59 81 mg QDAY CRICKET Administration Atorvastatin Calcium 40 mg 08/27/24 21:00 08/28/24 20:36 Atorvastatin Calcium 20 Mg Tablet PO 09/26/24 20:59 40 mg HS CRICKET Administration Abiraterone Acetate 0 ea 08/29/24 10:30 08/29/24 10:57 250 Mg Tablet PO 09/28/24 10:29 4 tablet DAILY CRICKET Administration Dextrose 25 ml 08/27/24 19:45 Dextrose 50%-Water Inj 50 Ml Syringe IV 09/26/24 19:44 Q15MIN PRN BG 50-70 responsive npo pt Dextrose 50 ml 08/27/24 19:45 Dextrose 50%-Water Inj 50 Ml Syringe IV 09/26/24 19:44 Q15MIN PRN BG <50 OR BG <70 & pt unresponsive Enoxaparin Sodium 95 mg 08/27/24 21:00 08/29/24 08:54 Enoxaparin Sod Inj 100 Mg/Ml Syringe 1 mg/kg (95 mg) 09/10/24 20:59 95 mg SC Administration BID CRICKET Furosemide 40 mg 08/27/24 19:50 08/29/24 08:57 Furosemide Inj 10 Mg/Ml 4ml Vial IVP 09/26/24 19:49 40 mg QDAY CRICKET Administration Glucagon 1 mg 08/27/24 19:45 Glucagon Inj 1 Mg Vial IM Q15MIN PRN BG <70, and no IV access Hydralazine HCl 10 mg 08/27/24 19:52 08/27/24 22:44 Hydralazine Inj 20 Mg/Ml Vial IVP 09/26/24 19:51 10 mg Q6H PRN Administration Systolic >160, Hr <75 Insulin Human Lispro 0 unit 08/27/24 21:00 08/29/24 11:34 Insulin Lispro (Admelog) 1 Unit/0.01 Ml Unit SC 09/26/24 20:59 1 unit ACHS CRICKET Administration Protocol Lisinopril 20 mg 08/29/24 10:30 08/29/24 10:56 Lisinopril 20 Mg Tablet PO 09/28/24 10:29 20 mg QDAY CRICKET Administration Meclizine HCl 25 mg 08/29/24 09:35 Meclizine Hcl 25 Mg Tablet PO 09/28/24 09:34 TID PRN NAUSEA OR VOMITING Metoprolol Succinate 25 mg 08/29/24 09:15 08/29/24 09:25 Metoprolol Succinate Xl 25 Mg Tabcr PO 09/28/24 09:14 25 mg QDAY CRICKET Administration Pantoprazole Sodium 40 mg 08/29/24 10:30 08/29/24 10:56 Pantoprazole 40 Mg Tablet PO 09/28/24 10:29 40 mg QDAY CRICKET Administration Prednisone 5 mg 08/29/24 10:30 08/29/24 10:57 Prednisone 5 Mg Tablet PO 09/28/24 10:29 5 mg QDAY CRICKET Administration Sennosides 1 tab 08/27/24 19:45 08/28/24 09:11 Senna Tablet PO 09/26/24 19:44 1 tab QDAY PRN Administration constipation Protocol Terazosin HCl 5 mg 08/29/24 21:00 Terazosin Hcl 5 Mg Capsule PO 09/28/24 20:59 HS CRICKET Plan The patient is a 78-year-old male with past medical history significant for prostate cancer s/p radiation and currently on chemotherapy, hypertension, and diabetes mellitus type 2 presented to ED on 08/27/2024 with chief complaint of dizziness. The patient was sent to ED by his PCP at [facility] and [place] due to concern regarding possible stroke. Cardiology consultation was done for new onset atrial fibrillation and new onset possible CHF exacerbation, including aneurysmal dilatation of ascending thoracic aorta. #New onset atrial fibrillation #Nonsustained V. tach #New onset CHF exacerbation # Dizziness The patient was sent by his PCP to ED for further evaluation of dizziness, as it was suspicious for a stroke, that has been ruled out, but was found to have new onset atrial fibrillation, rate controlled. CXR and chest CTA was also significant for vascular congestions, suggestive of possible new onset CHF exacerbation. EKG revealed yesterday atrial fibrillation, with RBBB, left anterior fascicular block, and repeat EKG this morning revealed again atrial fibrillation with heart rate of 67, IVCD, Patient denied any chest pain or chest pressure The patient had 2 rounds of nonsustained V. tach, 12 seconds and 2 seconds [id number] score 5, 11.2% stroke risk per year, has bled score of 2, 1.88% risks of bleeding per year. Recommended anticoagulation. -Telemetry monitoring - Continue with enoxaparin 90 Mg twice daily, later switched to Eliquis 5 Mg twice daily - Lasix 40 Mg IV daily for now and increase to Lasix 40 mg IV twice daily to keep net -1 to 2 L. - Strict ins and outs - Fluid restriction 1500 cc/day, Incorporated in diet - Low-sodium diet - Metoprolol XL for rate control as well as for the NSVT - TTE ordered, pending - Maintain electrolytes especially potassium and magnesium greater than 4 and 2 respectively at all the time. #Hypertensive emergency, resolved #Hypertension #NSTEMI type II Patient presented with SBP of 187, and mildly elevated troponin to 0.0117 and now downtrending. Patient denies any chest pain and EKG without any acute ST changes suggestive of ischemia. Troponin elevation mostly secondary to NSTEMI type II in the setting of supply/demand mismatch. No evidence of any acute coronary syndrome and we will continue further ischemic workup as outpatient Aspirin high intensity statin and beta-meaghan TSH A1c and lipid profile for further cardiac risk stratification #Mild ascending thoracic aortic aneurysm Aortic dilatation of 4.1 cm and ascending thoracic aorta - Recommended to maintain SBP less than 120 - Recommended to avoid hydralazine on long-term, may cause shearing stress on the aortic wall, leading to further dilatation - Yearly imaging with echo for monitoring - Afterload reduction started with lisinopril #Hypokalemia, improved Monitor and replete as needed #Iron deficiency anemia #Urinary retention #Insulin-dependent diabetes mellitus type 2 #Prostate cancer on abiraterone #Pulmonary nodule #Mild right upper lobe pneumonia, asymptomatic #Chronic constipation - Management deferred to primary hospitalist team. Thank you for cardiology consultation. We appreciate the opportunity to participate in this patient's care. Cardiology team will continue to follow up in this patient care. The patient's management plan was discussed with my attending physician MD Abdon Sauceda MD, PGY3 Attending Provider Attestation/Addendum I have personally seen and examined the patient separately on the above date of service and discussed the plan of care with the resident. I reviewed the resident Dr. Abdon Novak consultation progress note and agree with the resident findings and plan in the note above and have also edited the documentation to reflect my findings and plan. Fortino Strong M.D. Interventional Cardiology
[2024-08-29] MEDS: MECLIZINE HCL 25 MG TABLET PO ×2 (17:28→20:24)
[2024-08-29] MEDS: ACETAMINOPHEN 325 MG TABLET 650 MG PO (20:24)
[2024-08-29] MEDS: ATORVASTATIN CALCIUM 20 MG TABLET 40 MG PO (20:24)
[2024-08-29] MEDS: TERAZOSIN HCL 5 MG CAPSULE PO (20:25)
[2024-08-29] MEDS: FERROUS SULF 325 MG TABLET PO (20:25)
[2024-08-29] MEDS: APIXABAN 2.5 MG TABLET 5 MG PO (20:30)
[2024-08-30] VITALS (7 sets, daily range): BP systolic 131–138; BP diastolic 53–79; PULSE 39–67; RESP 12–22; TEMP 36.3–36.9; O2SAT 93–99; BMI 25.4; BMI 25.6
[2024-08-30 06:23] LABS: Basophils # (Auto) 0.0 Thou/mm3 (0.0-0.2); Basophils % (Auto) 1 % (0-2.5); Eosinophils # (Auto) 0.3 Thou/mm3 (0.0-0.5); Eosinophils % (Auto) 6 % (0-10); Hematocrit 32.6 % (41.0-53.0); Hemoglobin 10.6 g/dL (13.5-16.0); Immature Granulocytes Auto 0.01 Thou/mm3 (0.00-0.00); Lymphocytes # (Auto) 1.6 Thou/mm3 (1.0-4.8); Lymphocytes % (Auto) 28 % (10-50); Mean Corpuscular HGB Conc 32.5 g/dl (31.0-37.0); Mean Corpuscular Hemoglobin 33.7 pg (25.0-35.0); Mean Corpuscular Volume 104 fL (80-100); Monocytes # (Auto) 0.6 Thou/mm3 (0.0-0.8); Monocytes % (Auto) 9 % (0-12); Neutrophils # (Auto) 3.3 Thou/mm3 (1.8-7.7); Neutrophils % (Auto) 57 % (37-80); Nucleated Red Blood Cell # 0.00 Thou/mm3 (0.00-0.00); Nucleated Red Blood Cell % 0 /100 WBC (0); Platelet Count 230 Thou/mm3 (140-440); RDW Standard Deviation 54.3 fL (35.1-43.9); Red Blood Count 3.15 Miln/mm3 (4.50-5.90); White Blood Count 5.9 Thou/mm3 (3.8-10.6)
[2024-08-30 06:48] LABS: Alanine Aminotransferase 18 U/L (10-49); Albumin, Serum 3.3 gm/dL (3.4-4.8); Albumin/Globulin Ratio 1.4 (1.2-2.2); Alkaline Phosphatase 63 U/L (46-116); Anion Gap 9 (7-16); Aspartate Amino Transferase 16 U/L (0-34); BUN/Creatinine Ratio 16 Ratio (12-20); Bilirubin,Total 0.8 mg/dL (0.3-1.2); Blood Urea Nitrogen 19 mg/dL (9-23); Calcium 8.6 mg/dL (8.3-10.6); Calcium (Corrected) 9.2 mg/dL (8.5-10.1); Carbon Dioxide 29.3 mMol/L (20.0-31.0); Chloride 105 mMol/L (98-107); Creatinine (Component) 1.2 mg/dL (0.6-1.3); Estimated Creatinine Clearance 58.3 mL/min (>60); Globulin 2.3 gm/dL (2.3-3.5); Glucose 136 mg/dL (74-106); Magnesium 1.9 mg/dL (1.6-2.6); Osmolality,Calculated 289 (275-295); Phosphorous 3.2 mg/dL (2.4-5.1); Potassium 3.9 mMol/L (3.4-5.1); Sodium 143 mMol/L (136-145); Total Protein 5.6 gm/dL (5.7-8.2); eGFR > 60 See Note
[2024-08-30] MEDS: Magnesium Sulfate 2 GM Ivpb 2 GM/50 ML BAG IV (08:53)
[2024-08-30] MEDS: PANTOPRAZOLE 40 MG TABLET PO (08:54)
[2024-08-30] MEDS: MECLIZINE HCL 25 MG TABLET PO (08:54)
[2024-08-30] MEDS: ASPIRIN EC 81 MG TABEC PO (08:54)
[2024-08-30] MEDS: APIXABAN 2.5 MG TABLET 5 MG PO (08:55)
[2024-08-30] MEDS: ACETAMINOPHEN 325 MG TABLET 650 MG PO (09:03)
[2024-08-30] MEDS: METOPROLOL SUCCINATE XL 25 MG TABCR PO (09:04)
[2024-08-30] MEDS: FUROSEMIDE INJ 10 MG/ML 4ML VIAL 40 MG IVP (09:05)
[2024-08-30] MEDS: ABIRATERONE ACETATE 250 MG TABLET PO (09:07)
[2024-08-30] MEDS: POTASSIUM CHLORIDE 10% 20 MEQ/15 ML UDC PO (10:32)
--- NOTE | 2024-08-30 10:41 | PD.RESPRO ---
Documentation for date of: 08/30/24 Subjective Subjective Interval history: The patient was seen and examined at the bedside this morning. He reported doing well. He denied any chest palpitation, orthopnea or PND, dizziness was improving, no leg swelling. Vitals were fairly stable with mild hypertension, CBC at baseline, CMP at baseline and WNL. TTE revealed: Normal LV size. Mild LVH. Estimated EF at 40-45%. Global LV systolic function is mildly decreased. Normal Rv size and function. Estimated RVSP, 39 mmHg. RAP 15 mm hg. Mild MR and TR. Moderate aortic valve sclerosis. Mild TR. Dilated IVC. Continue on metoprolol succinate 25 Mg daily, and titrate up as tolerated. Recommended against hydralazine, as it will increase shearing pressure over the rico of ascending aorta, leading to further aneurysm. Increase lisinopril 20 Mg daily to 40mg daily to maintain systolic blood pressure between 100 to 120 mmHg, to prevent further aneurysmal dilatation of aorta. Continue with furosemide 40 Mg daily, and has been diuresing well. Strictly recommended to keep magnesium and potassium greater than 2 and 4 respectively at all the time. During discharge the patient should go home on lisinopril 40mg daily, lasix 40mg daily, metoprolol XL 25 mg daily, and eliquis 5mg BID, and recommended to monitor BP daily. Exam Vital Signs Temp Pulse Resp BP Pulse Ox O2 Del Method 97.8 F 62 21 H 138/53 H 95 Room Air 08/30/24 08:00 08/30/24 09:05 08/30/24 08:00 08/30/24 09:05 08/30/24 08:00 08/30/24 08:00 Narrative Exam General: No acute distress, Alert and Oriented x 3 HEENT: Moist mucous membranes, oropharynx clear Neck: Supple, No masses, No JVD CVS: Irregularly irregular rate and rhythm, No murmurs, rubs or gallops Lungs: Clear to auscultation with no accessory use, no wheeze no rhonchi Abd: Soft, NT/ND, +BS, no organomegaly Ext: 1+ bilateral lower limb pitting edema, warm and well perfused Skin: No rash Psych: Appropriate mood and affect Objective Labs 08/30/24 05:44 08/30/24 05:44 Labs: Laboratory Results - last 24 hr 08/30/24 05:44 WBC 5.9 RBC 3.15 L Hgb 10.6 L Hct 32.6 L MCV 104 H MCH 33.7 MCHC 32.5 RDW Std Deviation 54.3 H Plt Count 230 Neut % (Auto) 57 Lymph % (Auto) 28 [place] % (Auto) 9 Eos % (Auto) 6 Baso % (Auto) 1 Neut # (Auto) 3.3 Lymph # (Auto) 1.6 [place] # (Auto) 0.6 Eos # (Auto) 0.3 Baso # (Auto) 0.0 Immature Gran # (Auto) 0.01 H Absolute Nucleated RBC 0.00 Immature Gran % 0 Nucleated RBC % 0 Sodium 143 Potassium 3.9 Chloride 105 Carbon Dioxide 29.3 Anion Gap 9 BUN 19 Creatinine 1.2 Estim Creat Clear Calc 58.3 L eGFR > 60 BUN/Creatinine Ratio 16 Glucose 136 H Calculated Osmolality 289 Calcium 8.6 Corrected Calcium 9.2 Phosphorus 3.2 Magnesium 1.9 Total Bilirubin 0.8 AST 16 ALT 18 Alkaline Phosphatase 63 Total Protein 5.6 L Albumin 3.3 L Globulin 2.3 Albumin/Globulin Ratio 1.4 Quality Measures Quality Measures VTE prophylaxis Advance care planning discussed with:: patient Assessment & Plan Assessment Current Active Medications: Generic Name Dose Route Start Last Admin Trade Name Freq PRN Reason Stop Dose Admin Acetaminophen 650 mg 08/27/24 19:45 08/30/24 09:03 Acetaminophen 325 Mg Tablet PO 09/26/24 19:44 650 mg Q6H PRN Administration PAIN SCALE 1-3 (mild Apixaban 5 mg 08/29/24 21:00 08/30/24 08:55 Apixaban 2.5 Mg Tablet PO 09/28/24 20:59 5 mg BID CRICKET Administration Aspirin 81 mg 08/28/24 09:00 08/30/24 08:54 Aspirin Ec 81 Mg Tabec PO 09/27/24 08:59 81 mg QDAY CRICKET Administration Atorvastatin Calcium 40 mg 08/27/24 21:00 08/29/24 20:24 Atorvastatin Calcium 20 Mg Tablet PO 09/26/24 20:59 40 mg HS CRICKET Administration Abiraterone Acetate 0 ea 08/29/24 10:30 08/30/24 09:07 250 Mg Tablet PO 09/28/24 10:29 4 tablet DAILY CRICKET Administration Dextrose 25 ml 08/27/24 19:45 Dextrose 50%-Water Inj 50 Ml Syringe IV 09/26/24 19:44 Q15MIN PRN BG 50-70 responsive npo pt Dextrose 50 ml 08/27/24 19:45 Dextrose 50%-Water Inj 50 Ml Syringe IV 09/26/24 19:44 Q15MIN PRN BG <50 OR BG <70 & pt unresponsive Ferrous Sulfate 325 mg 08/29/24 19:00 08/29/24 20:25 Ferrous Sulf 325 Mg Tablet PO 09/28/24 18:59 325 mg QOD CRICKET Administration Furosemide 40 mg 08/27/24 19:50 08/30/24 09:05 Furosemide Inj 10 Mg/Ml 4ml Vial IVP 09/26/24 19:49 40 mg QDAY CRICKET Administration Glucagon 1 mg 08/27/24 19:45 Glucagon Inj 1 Mg Vial IM Q15MIN PRN BG <70, and no IV access Insulin Human Lispro 0 unit 08/27/24 21:00 08/30/24 07:30 Insulin Lispro (Admelog) 1 Unit/0.01 Ml Unit SC 09/26/24 20:59 Not Given ACHS CRICKET Protocol Lisinopril 20 mg 08/29/24 10:30 08/30/24 09:04 Lisinopril 20 Mg Tablet PO 09/28/24 10:29 20 mg QDAY CRICKET Administration Meclizine HCl 25 mg 08/29/24 09:35 08/30/24 08:54 Meclizine Hcl 25 Mg Tablet PO 09/28/24 09:34 25 mg TID PRN Administration NAUSEA OR VOMITING Metoprolol Succinate 25 mg 08/29/24 09:15 08/30/24 09:04 Metoprolol Succinate Xl 25 Mg Tabcr PO 09/28/24 09:14 25 mg QDAY CRICKET Administration Pantoprazole Sodium 40 mg 08/29/24 10:30 08/30/24 08:54 Pantoprazole 40 Mg Tablet PO 09/28/24 10:29 40 mg QDAY CRICKET Administration Prednisone 5 mg 08/29/24 10:30 08/30/24 08:55 Prednisone 5 Mg Tablet PO 09/28/24 10:29 5 mg QDAY CRICKET Administration Sennosides 1 tab 08/27/24 19:45 08/28/24 09:11 Senna Tablet PO 09/26/24 19:44 1 tab QDAY PRN Administration constipation Protocol Terazosin HCl 5 mg 08/29/24 21:00 08/29/24 20:25 Terazosin Hcl 5 Mg Capsule PO 09/28/24 20:59 5 mg HS CRICKET Administration Plan The patient is a 78-year-old male with past medical history significant for prostate cancer s/p radiation and currently on chemotherapy, hypertension, and diabetes mellitus type 2 presented to ED on 08/27/2024 with chief complaint of dizziness. The patient was sent to ED by his PCP at [facility] and [place] due to concern regarding possible stroke. Cardiology consultation was done for new onset atrial fibrillation and new onset possible CHF exacerbation, including aneurysmal dilatation of ascending thoracic aorta. #New onset atrial fibrillation #Nonsustained V. tach #New onset CHF exacerbation # Dizziness The patient was sent by his PCP to ED for further evaluation of dizziness, as it was suspicious for a stroke, that has been ruled out, but was found to have new onset atrial fibrillation, rate controlled. CXR and chest CTA was also significant for vascular congestions, suggestive of possible new onset CHF exacerbation. EKG revealed yesterday atrial fibrillation, with RBBB, left anterior fascicular block, and repeat EKG this morning revealed again atrial fibrillation with heart rate of 67, IVCD, Patient denied any chest pain or chest pressure The patient had 2 rounds of nonsustained V. tach, 12 seconds and 2 seconds [id number] score 5, 11.2% stroke risk per year, has bled score of 2, 1.88% risks of bleeding per year. Recommended anticoagulation. -Telemetry monitoring - Continue with enoxaparin 90 Mg twice daily, later switched to Eliquis 5 Mg twice daily - Lasix 40 Mg IV daily for now and increase to Lasix 40 mg IV twice daily to keep net -1 to 2 L. - Strict ins and outs - Fluid restriction 1500 cc/day, Incorporated in diet - Low-sodium diet - Metoprolol XL for rate control as well as for the NSVT - Maintain electrolytes especially potassium and magnesium greater than 4 and 2 respectively at all the time. #Hypertensive emergency, resolved #Hypertension #NSTEMI type II Patient presented with SBP of 187, and mildly elevated troponin to 0.0117 and now downtrending. Patient denies any chest pain and EKG without any acute ST changes suggestive of ischemia. Troponin elevation mostly secondary to NSTEMI type II in the setting of supply/demand mismatch. No evidence of any acute coronary syndrome and we will continue further ischemic workup as outpatient Aspirin high intensity statin and beta-meaghan TSH A1c and lipid profile for further cardiac risk stratification #Mild ascending thoracic aortic aneurysm Aortic dilatation of 4.1 cm and ascending thoracic aorta - Recommended to maintain SBP less than 120 - Recommended to avoid hydralazine on long-term, may cause shearing stress on the aortic wall, leading to further dilatation - Yearly imaging with echo for monitoring - Afterload reduction started with lisinopril #Hypokalemia, improved Monitor and replete as needed #Iron deficiency anemia #Urinary retention #Insulin-dependent diabetes mellitus type 2 #Prostate cancer on abiraterone #Pulmonary nodule #Mild right upper lobe pneumonia, asymptomatic #Chronic constipation - Management deferred to primary hospitalist team. Thank you for cardiology consultation. We appreciate the opportunity to participate in this patient's care. Cardiology team will continue to follow up in this patient care. The patient's management plan was discussed with my attending physician MD Abdon Sauceda MD, PGY3 Attending Provider Attestation/Addendum I have personally seen and examined the patient separately on the above date of service and discussed the plan of care with the resident. I reviewed the resident Dr. Abdon Novak consultation progress note and agree with the resident findings and plan in the note above and have also edited the documentation to reflect my findings and plan. Fortino Strong M.D. Interventional Cardiology
--- NOTE | 2024-08-30 11:25 | PC.SS ---
Addendum entered by Hilda Jennings 08/30/24 12:02: SS informed by JESIKA Balderas patient is needing FWW. SS submitted referral to LEONARDO Henning via [employer]. Patient informed his insurance will need to provide authorization for FWW can delivery can take up to 5-10 days. Patient confirmed demographic information. [employer] company's contact information was provided to patient for follow up. JESIKA Balderas informed. Original Note: Walkers The diagnosis creates mobility limitation that significantly impairs ability to participate in the patients activities of daily living either in their entirety, or in a reasonable time frame. Also, the patient is able to safely use the walker and the patient?s mobility is sufficiently resolved with the use of the walker and a cane has been ruled out.
[2024-08-30] MEDS: INSULIN LISPRO (AdmeLOG) 1 UNIT/0.01 ML UNIT SC (12:09)
--- NOTE | 2024-08-30 14:36 | ESDS_ITS ---
<Statement entered by Vicky Morales MD - 09/03/24 08:03> I reviewed above note and agree with findings and plans. I have also personally examined the patient with medicine team and went over assessment and plan with medical team including planner internship and resident physician. <Statement entered by Jacinto Henning MD - 08/30/24 14:47> Patient seen and examined at bedside. I discussed and supervised with the planner internship physician who took care of this patient. I personally saw and examined the patient. I agree with most of the assessment and plan. Plan of care discussed with attending Dr. Morales. Jacinto Henning MD PGY-2 Planned Discharge Date 08/30/24 DS: Providers Provider Date of admission: 08/27/24 19:45 Primary care physician: Physician No Primary/Family Admitting Provider: Mary Mcguire MD Attending Provider on Admission: Mary Mcguire MD Consults: 08/27/24 19:48 Consult to Cardiology Routine Comment: new onset afib, chf Consulting Provider: Fortino Strong 08/28/24 07:00 Referral Physical Therapy Routine Comment: Physician Instructions: Attending Provider on DC: Vicky Morales MD Discharging Provider: RESIDENT Iglesia DS: Diagnosis Problem List Completed Was Problem List Reviewed/Reconciled?: Yes Hospital Course Hospital Course Hospital course: The patient is a 78-year-old male with a history of prostate cancer (on abiraterone/prednisone), insulin-dependent type 2 diabetes, hypertension, and chronic constipation, who presented to the ED with dizziness concerning for possible stroke. Stroke workup including brain MRI was negative. He was found to be in new-onset atrial fibrillation with slow ventricular response, hypertensive emergency (SBP 187), and had two brief runs of non-sustained ventricular tachycardia on 08/28. Troponin peaked at 0.117 and trended down to 0.064 without any chest pain or ischemic symptoms. Chest CTA revealed an incidental ascending thoracic aortic aneurysm (4.1 cm), mild right upper lobe pneumonia, and a 4 mm pulmonary nodule. Carotid Doppler was negative for significant stenosis. Echo showed an EF of 40?45%, mild MR/TR, and a dilated IVC. Cardiology recommended initiating anticoagulation, rate control, fluid restriction, and blood pressure control. He was started on apixaban, metoprolol, resumed lisinopril and prednisone, and managed with IV Lasix. The patient?s dizziness improved with scheduled meclizine. Zofran was ineffective and discontinued. PT was consulted for BPPV and will follow up outpatient. He was also found to have iron deficiency anemia with a colonoscopy already scheduled for 09/03. Rocha catheter placed for urinary retention showed good drainage and was well tolerated. No further VT or Afib-related symptoms occurred during hospitalization. He is stable for discharge. Diagnoses During Admission: #Atrial Fibrillation #Non-sustained Ventricular Tachycardia #Congestive Heart Failure #Hypertensive Emergency #Type II NSTEMI #Ascending Thoracic Aortic Aneurysm #Dizziness #Hypokalemia #Hypomagnesemia #Iron Deficiency Anemia #Poor Oral Intake #Urinary Retention #Prostate Cancer #Type 2 Diabetes Mellitus (Insulin-dependent) #Neuropathy of the Feet #Pulmonary Nodule #Right Upper Lobe Pneumonia #Chronic Constipation Discharge Plans: Take Eliquis 5 mg twice daily indefinetly Take aspirin 81 mg daily Take lasix 40 mg, metoprolol succ 25 mg once daily , meclizine 25 mg tid as needed for dizziness Lisinopril has been increased to 40 mg daily Lantus has been decreased to 10 units daily You have been started on metformin 500 BID Please speak with your PCP regarding diabetic medication Take home meds as prescribed F/u with PCP as outpatient within a week F/u with test center administrator as outpatient within a week In case of emergency call 911 or come back to the ED ----- Plan discussed with attending physician Dr. Morales and senior resident Dr. Tayo MD PGY-1 Internal Medicine Time Spent with Patient Time attestation: Total time spent providing and/or coordinating discharge services: Time spent: Greater than 30 minutes Exam Vital Signs Temp Pulse Resp BP Pulse Ox O2 Del Method 97.4 F 58 L 22 H 131/77 H 94 L Room Air 08/30/24 12:00 08/30/24 12:00 08/30/24 12:08/30/24 12:00 08/30/24 12:08/30/24 12:00 Narrative Exam Physical Exam on Discharge: General: Awake, alert, in no acute distress HEENT: PERRLA, EOMI, moist mucosa Neck: No JVD Cardiac: Irregularly irregular, no murmurs Pulmonary: Clear to auscultation bilaterally Abdomen: Soft, non-tender, non-distended, positive bowel sounds Extremities: +1 pitting edema bilateral feet Neuro: A&O x3, CN II?XII grossly intact, no focal deficits Skin: Warm, dry, no rashes Discharge Plan Plan Patient Disposition: HOME (Self Care) Care Plan Goals: Take Eliquis 5 mg twice daily indefinetly Take aspirin 81 mg daily Take lasix 40 mg, metoprolol succ 25 mg once daily , meclizine 25 mg tid as needed for dizziness Lisinopril has been increased to 40 mg daily Lantus has been decreased to 10 units daily You have been started on metformin 500 BID Please speak with your PCP regarding diabetic medication Take home meds as prescribed F/u with PCP as outpatient within a week F/u with test center administrator as outpatient within a week In case of emergency call 911 or come back to the ED Prescriptions/Referrals Prescriptions/Med Rec: New meclizine 25 mg Tablet 25 mg PO TID PRN (Reason: Nausea Or Vomiting) Qty: 60 0RF metoprolol succinate 25 mg Tablet Extended Release 24 Hr 25 mg PO QDAY Qty: 90 0RF Eliquis 5 mg tablet 5 mg PO BID Qty: 90 0RF lisinopril 40 mg tablet 40 mg PO QDAY 30 Days Qty: 30 0RF insulin glargine [Lantus Solostar U-100 Insulin] 100 unit/mL (3 mL) insulin pen 10 unit subcut QPM Qty: 15 0RF metformin 500 mg tablet 500 mg PO BID 30 Days Qty: 60 0RF furosemide [Lasix] 40 mg tablet 40 mg PO QAM 30 Days Qty: 30 0RF Continued aspirin 81 mg tablet,delayed release (DR/EC) 81 mg PO QDAY terazosin 5 mg capsule 5 mg PO QHS gabapentin 100 mg capsule 100 mg PO TID abiraterone 250 mg tablet 1,000 mg PO QDAY Rx Instructions: must be taken on empty stomach, at least 1 hr before or 2 hrs after a meal/food prednisone 5 mg tablet 5 mg PO QDAY rosuvastatin 5 mg tablet 5 mg PO QDAY Discontinued lisinopril 20 mg tablet 20 mg PO QDAY insulin glargine [Lantus U-100 Insulin] 1 UNIT/0.01 ML unit 56 unit Sub-Q QPM Qty: 0 Referrals: No Primary/Family,Physician [Primary Care Provider] - Patient/Caregiver Discharge Instructions Discharge Activity: activity as tolerated Education Materials: AFL/Afib, Exercise for a Healthier Heart, Coping with Heart Failure, Eating Heart-Healthy Foods, Understanding Atrial Fibrillation Print Language: [place]ian Stand Alone Forms: [facility]anyelle Award Info., Patient Portal Info Letter Discharge Order Discharge Orders: Discharge (Routine); Ordered 08/30/24 Ordered By: Jacinto Henning Quality Discharge Quality Measures VTE prophylaxis
--- NOTE | 2024-08-30 15:21 | PC.CC ---
Noted several medications on discharge with only [facility] coverage on [facility]. S/W Levi and confirmed patient does not use prescription insurance and provided Eliquis Free Trial card to cover cost of that Rx. S/W patient who confirms he only receives medications through the [facility] and stated he has insulin on hand. Advised patient that Eliquis is now available with $0 co-pay and recommended he discuss with the pharmacist on duty which medications were absolutely necessary to obtain until he can be seen by his [facility]. Patient states he will contact [facility] for a follow-up appointment. Advised patient that PharmD will fax [facility] Fax sent to [phone].
== END 2024-08-30 13:52 | disposition home or self-care (01) | DRG 280 ==
LOC: SERX 19:25 → SERHOLD 20:03 → S2NX 22:28
PROVIDERS: Nurse Practitioner Primary Care; Student in an Organized Health Care Education/Training Program; Admitting Provider Student in an Organized Health Care Education/Training Program; Emergency Provider Physician Assistant Medical; Visit Provider Student in an Organized Health Care Education/Training Program
DX: I48.91 Unspecified atrial fibrillation (principal); J18.9 Pneumonia, unspecified organism; I21.A1 Myocardial infarction type 2; I16.1 Hypertensive emergency; Z92.3 Personal history of irradiation; C61 Malignant neoplasm of prostate; K59.00 Constipation, unspecified; F12.90 Cannabis use, unspecified, uncomplicated; I71.21 Aneurysm of the ascending aorta, without rupture; I65.22 Occlusion and stenosis of left carotid artery; R91.1 Solitary pulmonary nodule; D53.9 Nutritional anemia, unspecified; D50.9 Iron deficiency anemia, unspecified; E11.40 Type 2 diabetes mellitus with diabetic neuropathy, unspecified; I11.0 Hypertensive heart disease with heart failure; I50.9 Heart failure, unspecified; E87.6 Hypokalemia; E78.5 Hyperlipidemia, unspecified; E83.42 Hypomagnesemia; I25.2 Old myocardial infarction; I47.20 Ventricular tachycardia, unspecified; K59.09 Other constipation; R33.9 Retention of urine, unspecified; I35.8 Other nonrheumatic aortic valve disorders; Z79.4 Long term (current) use of insulin; I65.29 Occlusion and stenosis of unspecified carotid artery; Z63.4 Disappearance and death of family member; Z79.01 Long term (current) use of anticoagulants; Z79.82 Long term (current) use of aspirin; Z79.899 Other long term (current) drug therapy; Z85.46 Personal history of malignant neoplasm of prostate; Z91.85 Personal history of military service
CPT/HCPCS: 36415; 70544; 71045; 71275; 80053; 80061; 81001; 82533; 82607; 82728; 82746; 83036; 83540; 83550; 83735; 83880; 84100; 84132; 84484; 85025; 85046; 85610; 85730; 87811; 93005; 93306; 93880; 93971; 96365; 96375; 97161; 99284; A4649; J0360; J1650; J1815; J1938; J2405; J3475; J3480; J7030; J7512; Q9967; A9270

== ENCOUNTER → 2024-09-10 | Outpatient (CLI) | payer OTHER, SELFPAY ==
[2024-09-10 14:35] LABS: Basophils # (Auto) 0.1 Thou/mm3 (0.0-0.2); Basophils % (Auto) 1 % (0-2.5); Eosinophils # (Auto) 0.3 Thou/mm3 (0.0-0.5); Eosinophils % (Auto) 3 % (0-10); Hematocrit 36.9 % (41.0-53.0); Hemoglobin 12.3 g/dL (13.5-16.0); Immature Granulocytes Auto 0.01 Thou/mm3 (0.00-0.00); Lymphocytes # (Auto) 1.8 Thou/mm3 (1.0-4.8); Lymphocytes % (Auto) 20 % (10-50); Mean Corpuscular HGB Conc 33.3 g/dl (31.0-37.0); Mean Corpuscular Hemoglobin 33.5 pg (25.0-35.0); Mean Corpuscular Volume 101 fL (80-100); Monocytes # (Auto) 0.5 Thou/mm3 (0.0-0.8); Monocytes % (Auto) 5 % (0-12); Neutrophils # (Auto) 6.3 Thou/mm3 (1.8-7.7); Neutrophils % (Auto) 71 % (37-80); Nucleated Red Blood Cell # 0.00 Thou/mm3 (0.00-0.00); Nucleated Red Blood Cell % 0 /100 WBC (0); Platelet Count 329 Thou/mm3 (140-440); RDW Standard Deviation 49.8 fL (35.1-43.9); Red Blood Count 3.67 Miln/mm3 (4.50-5.90); White Blood Count 9.0 Thou/mm3 (3.8-10.6)
[2024-09-10 14:55] LABS: Alanine Aminotransferase 19 U/L (10-49); Albumin, Serum 3.9 gm/dL (3.4-4.8); Albumin/Globulin Ratio 1.7 (1.2-2.2); Alkaline Phosphatase 85 U/L (46-116); Anion Gap 10 (7-16); Aspartate Amino Transferase 14 U/L (0-34); BUN/Creatinine Ratio 31 Ratio (12-20); Bilirubin,Total 0.6 mg/dL (0.3-1.2); Blood Urea Nitrogen 50 mg/dL (9-23); Calcium 9.2 mg/dL (8.3-10.6); Calcium (Corrected) 9.3 mg/dL (8.5-10.1); Carbon Dioxide 27.1 mMol/L (20.0-31.0); Chloride 103 mMol/L (98-107); Creatinine (Component) 1.6 mg/dL (0.6-1.3); Globulin 2.3 gm/dL (2.3-3.5); Glucose 151 mg/dL (74-106); Osmolality,Calculated 295 (275-295); Potassium 3.6 mMol/L (3.4-5.1); Sodium 140 mMol/L (136-145); Total Protein 6.2 gm/dL (5.7-8.2); eGFR 44 See Note
[2024-09-10 15:06] LABS: Prostate Specific Antigen 1.63 ng/mL (0-4.00)
== END | disposition home or self-care (01) ==
LOC: SCTO 13:43
PROVIDERS: PCP Internal Medicine; Referring Provider Nurse Practitioner Family; Visit Provider Nurse Practitioner Family
DX: C61 Malignant neoplasm of prostate (principal)
CPT/HCPCS: 36415; 80053; 84153; 85025

== ENCOUNTER 2024-09-11 13:55 | Outpatient (RCR) | payer OTHER, SELFPAY | END 2024-10-06 23:59 | disposition home or self-care (01) | LOC: SCTC 13:55 | PROVIDERS: PCP Family Medicine; Referring Provider Family Medicine; Visit Provider Internal Medicine Hematology & Oncology | DX: Z51.11 Encounter for antineoplastic chemotherapy (principal); C61 Malignant neoplasm of prostate; M15.9 Polyosteoarthritis, unspecified; I10 Essential (primary) hypertension | CPT/HCPCS: 96402; J9217 ==

== ENCOUNTER → 2024-10-11 | Outpatient (CLI) | payer OTHER, SELFPAY ==
[2024-10-11 13:56] LABS: Basophils # (Auto) 0.0 Thou/mm3 (0.0-0.2); Basophils % (Auto) 0 % (0-2.5); Eosinophils # (Auto) 0.5 Thou/mm3 (0.0-0.5); Eosinophils % (Auto) 6 % (0-10); Hematocrit 35.7 % (41.0-53.0); Hemoglobin 12.1 g/dL (13.5-16.0); Immature Granulocytes Auto 0.01 Thou/mm3 (0.00-0.00); Lymphocytes # (Auto) 2.2 Thou/mm3 (1.0-4.8); Lymphocytes % (Auto) 28 % (10-50); Mean Corpuscular HGB Conc 33.9 g/dl (31.0-37.0); Mean Corpuscular Hemoglobin 33.6 pg (25.0-35.0); Mean Corpuscular Volume 99 fL (80-100); Monocytes # (Auto) 0.5 Thou/mm3 (0.0-0.8); Monocytes % (Auto) 7 % (0-12); Neutrophils # (Auto) 4.5 Thou/mm3 (1.8-7.7); Neutrophils % (Auto) 59 % (37-80); Nucleated Red Blood Cell # 0.00 Thou/mm3 (0.00-0.00); Nucleated Red Blood Cell % 0 /100 WBC (0); Platelet Count 292 Thou/mm3 (140-440); RDW Standard Deviation 49.7 fL (35.1-43.9); Red Blood Count 3.60 Miln/mm3 (4.50-5.90); White Blood Count 7.7 Thou/mm3 (3.8-10.6)
[2024-10-11 14:16] LABS: Alanine Aminotransferase 18 U/L (10-49); Albumin, Serum 3.9 gm/dL (3.4-4.8); Albumin/Globulin Ratio 1.7 (1.2-2.2); Alkaline Phosphatase 79 U/L (46-116); Anion Gap 10 (7-16); Aspartate Amino Transferase 14 U/L (0-34); BUN/Creatinine Ratio 19 Ratio (12-20); Bilirubin,Total 0.7 mg/dL (0.3-1.2); Blood Urea Nitrogen 23 mg/dL (9-23); Calcium 9.9 mg/dL (8.3-10.6); Calcium (Corrected) 10.0 mg/dL (8.5-10.1); Carbon Dioxide 27.6 mMol/L (20.0-31.0); Chloride 104 mMol/L (98-107); Creatinine (Component) 1.2 mg/dL (0.6-1.3); Globulin 2.3 gm/dL (2.3-3.5); Glucose 132 mg/dL (74-106); Osmolality,Calculated 288 (275-295); Potassium 4.6 mMol/L (3.4-5.1); Sodium 142 mMol/L (136-145); Total Protein 6.2 gm/dL (5.7-8.2); eGFR > 60 See Note
[2024-10-11 14:19] LABS: Ferritin 165 ng/mL (10.5-307.3); Iron 38 mcg/dL (65-175); Percent Iron Saturation 13 % (20-55); Prostate Specific Antigen 1.25 ng/mL (0-4.00); Total Iron Binding Capacity 272 mcg/dL (250-425); Unsaturated Iron Binding 234 (225-295)
[2024-10-11 14:28] LABS: Folate 11.09 ng/mL (>5.38)
[2024-10-11 23:33] LABS: Vitamin B12 552 pg/mL (211-911)
== END | disposition home or self-care (01) ==
LOC: SCTO 13:15
PROVIDERS: Referring Provider Nurse Practitioner Family; Visit Provider Nurse Practitioner Family
DX: C61 Malignant neoplasm of prostate (principal)
CPT/HCPCS: 36415; 80053; 82607; 82728; 82746; 83540; 83550; 84153; 85025

== ENCOUNTER 2024-10-14 14:21 | Outpatient (RCR) | payer OTHER, SELFPAY | END 2024-11-05 23:59 | disposition home or self-care (01) | LOC: SCTC 14:21 | PROVIDERS: PCP Family Medicine; Referring Provider Family Medicine; Visit Provider Internal Medicine Hematology & Oncology | DX: Z51.11 Encounter for antineoplastic chemotherapy (principal); C61 Malignant neoplasm of prostate; I10 Essential (primary) hypertension; M15.9 Polyosteoarthritis, unspecified | CPT/HCPCS: 96402; J9217 ==

== ENCOUNTER 2024-11-18 09:35 | Emergency (ER) | payer OTHER, SELFPAY ==
[2024-11-18 09:37] VITALS: BMI 24.7
[2024-11-18 09:53] VITALS: BP 150/68; PULSE 86; RESP 18; TEMP 37.1; O2SAT 95
--- NOTE | 2024-11-18 10:05 | XR_ITS ---
EXAMINATION: PA lateral chest 2 views TECHNIQUE: Upright PA lateral chest 2 views Date and time: November 18, 2024, 1047 hours, comparison August 27, 2024 INDICATIONS: Onset chest pain today FINDINGS: Normal heart size. Significant hyperexpansion Scarring at the right lung base. No interval pneumonia or pulmonary edema IMPRESSION: COPD with significant hyperexpansion
--- NOTE | 2024-11-18 10:05 | EKG_ITS ---
[facility] Test Date: 2024-11-18 Pat Name: BRIANNE DAVIS Department: Room: - Gender: Male Product Development: : 1945 Requested By: Kevin Cote Order Number: [id number] Reading MD: Kevin Cote Measurements Intervals [place] Rate: 61 P: RI: QRS: -60 QRSD: 139 T: 48 QT: 467 QTc: 472 Interpretive Statements ATRIAL FIBRILLATION LEFT AXIS DEVIATION [QRS AXIS < -30] INTRAVENTRICULAR CONDUCTION DELAY [130+ ms QRS DURATION] Compared to ECG 08/28/2024 08:47:46 Left-axis deviation now present Myocardial infarct finding no longer present /store/S0/[id number]/ecg/[id number].pdf
--- NOTE | 2024-11-18 10:05 | PD.EDRME ---
Rapid Medical Screening Exam RME Arrival date/time: 11/18/24 09:35 79-year-old male with a history of type 2 diabetes, prostate cancer, hyperlipidemia, presents to the emergency room with a chief complaint of bilateral lower extremity swelling, weakness, loss of appetite x 1 week. Per caregiver at bedside the patient appears to be more yellow in color as well. I have greeted and performed a focused initial assessment of this patient. A comprehensive ED assessment and evaluation of the patient, analysis of all test results, and completion of the medical decision making process will be conducted by additional ED providers. Chief Complaint: General Adult/Misc Complain Time Seen by Provider: 11/18/24 09:51 Vital signs: Vital Signs Temperature 98.7 F 11/18/24 09:53 Pulse Rate 86 11/18/24 09:53 Respiratory Rate 18 11/18/24 09:53 Blood Pressure 150/68 H 11/18/24 09:53 Pulse Oximetry (%) 95 11/18/24 09:53 Oxygen Delivery Method Room Air 11/18/24 09:53 Vital signs reviewed by provider: Yes
[2024-11-18 10:39] LABS: Basophils # (Auto) 0.0 Thou/mm3 (0.0-0.2); Basophils % (Auto) 1 % (0-2.5); Eosinophils # (Auto) 0.6 Thou/mm3 (0.0-0.5); Eosinophils % (Auto) 14 % (0-10); Hematocrit 30.9 % (41.0-53.0); Hemoglobin 10.5 g/dL (13.5-16.0); Immature Granulocytes Auto 0.01 Thou/mm3 (0.00-0.00); Lymphocytes # (Auto) 1.6 Thou/mm3 (1.0-4.8); Lymphocytes % (Auto) 37 % (10-50); Mean Corpuscular HGB Conc 34.0 g/dl (31.0-37.0); Mean Corpuscular Hemoglobin 32.8 pg (25.0-35.0); Mean Corpuscular Volume 97 fL (80-100); Monocytes # (Auto) 0.3 Thou/mm3 (0.0-0.8); Monocytes % (Auto) 7 % (0-12); Neutrophils # (Auto) 1.8 Thou/mm3 (1.8-7.7); Neutrophils % (Auto) 41 % (37-80); Nucleated Red Blood Cell # 0.00 Thou/mm3 (0.00-0.00); Nucleated Red Blood Cell % 0 /100 WBC (0); Platelet Count 314 Thou/mm3 (140-440); RDW Standard Deviation 48.8 fL (35.1-43.9); Red Blood Count 3.20 Miln/mm3 (4.50-5.90); White Blood Count 4.3 Thou/mm3 (3.8-10.6)
[2024-11-18 10:53] LABS: Collection Type, Urine Clean Catch
--- NOTE | 2024-11-18 10:58 | PD.EDADULT ---
ED General RME/HPI General Chief complaint: General Adult/Misc Complain Stated complaint: JAUNDICE/BODY SWELLING/ HIGH BP x 2 WEEKS Time Seen by Provider: 11/18/24 09:51 Arrival date/time: 11/18/24 09:35 RME / HPI RME / HPI narrative: 11/18/24 09:35 79-year-old male with a history of type 2 diabetes, prostate cancer, hyperlipidemia, presents to the emergency room with a chief complaint of bilateral lower extremity swelling, weakness, loss of appetite x 1 week. Per caregiver at bedside the patient appears to be more yellow in color as well. I have greeted and performed a focused initial assessment of this patient. A comprehensive ED assessment and evaluation of the patient, analysis of all test results, and completion of the medical decision making process will be conducted by additional ED providers. DR. MERINO MAIN ED EVALUATION 79 year old male with history of hypertension, diabetes, prostate CA presents to the ED brought in by caregiver for multiple complaints. Caregiver reports in the last 1-2 weeks patient has had worsening leg swelling, skin yellowing, decreased urinary output, and episodes of confusion/disorientation. States at baseline, the patient is awake, alert, and oriented. In the ED, patient complains of pain to his lower back, runny nose, diffuse abdominal discomfort and change in stool color and consistency. States in the last 2-3 days his stool is yellow and thin . Denies any urinary symptoms, blood in stool or urine. Related Data Home Medications ?Medication ?Instructions ?Recorded ?Confirmed abiraterone 250 mg tablet 1,000 mg PO QDAY 04/13/23 08/28/24 aspirin 81 mg tablet,delayed 81 mg PO QDAY 04/13/23 08/28/24 release gabapentin 100 mg capsule 100 mg PO TID 04/13/23 08/28/24 prednisone 5 mg tablet 5 mg PO QDAY 04/13/23 08/28/24 rosuvastatin 5 mg tablet 5 mg PO QDAY 04/13/23 08/28/24 terazosin 5 mg capsule 5 mg PO QHS 04/13/23 08/28/24 Previous Rx's ?Medication ?Instructions ?Recorded apixaban 5 mg tablet (Eliquis) 5 mg PO BID #90 tabs 08/29/24 meclizine 25 mg tablet 25 mg PO TID PRN Nausea Or 08/29/24 Vomiting #60 tabs metoprolol succinate 25 mg 25 mg PO QDAY #90 tabs 08/29/24 tablet,extended release 24 hr insulin glargine 100 unit/mL (3 10 unit (0.1 mL) subcut QPM #15 mL 08/30/24 mL) subcutaneous pen (Lantus Solostar U-100 Insulin) Allergies Allergy/AdvReac Type Severity Reaction Status Date / Time No Known Allergies Allergy Verified 11/18/24 09:38 Review of Systems Review of Systems Systems Reviewed: All systems reviewed, normal except as documented Past Medical History Past Medical History CARDIAC: Positive Hypertension GASTROINTESTINAL: Positive Colitis GENITOURINARY: Positive Prostate Cancer MUSCULOSKELETAL: Positive Arthritis ENDOCRINE: Positive Diabetes Mellitus Type 2 HEMATOLOGIC: Positive Anemia OTHER HISTORY: Positive Radiation Therapy and Prostate Cancer Surgical History SURGICAL: Positive Vasectomy Social History SMOKING STATUS: Never smoker ED Exam Narrative Physical exam: Constitutional: Awake, alert, nontoxic, no acute distress, pale, elderly, frail HEENT: Normocephalic, atraumatic, extraocular movements intact, no scleral icterus Neck: Supple CV: Regular rate and rhythm, no murmurs/rubs/gallops Lungs: Clear to auscultation BL, no respiratory distress. Abd: Soft, generalized tenderness worse over the right upper quadrant, no rebound, no guarding, ND, no HSM noted to palpation Extremities: No deformities, trace pedal edema to bilateral lower extremities Neuro: AAOx3, no acute neuro deficit noted. Skin: Warm, dry, intact, pale Course Course Course Narrative: 1502h: Patients magnesium is low at 1.5. Potassium is low at 3.3. No other significant concerning findings on work-up. Discussed results with the patient. He is awake, alert, answering questions appropriately. Patient is stable for dc home after meds and advised to f/u with pcp for further outpatient management. Quality Measures none Orders Category Date Time Status CT Screening NOW Care 11/18/24 11:15 Active EKG (ED ONLY) *Do not use* NOW Care 11/18/24 10:[address] abdomen pelvis w con Stat Exams 11/18/24 11:15 Completed EKG (ED Only) Stat Exams 11/18/24 10:05 Draft XR chest 2V Stat Exams 11/18/24 10:05 Completed Ammonia Stat Lab 11/18/24 11:54 Completed B-Type Natriuretic Peptide Stat Lab 11/18/24 10:20 Completed CBC Stat Lab 11/18/24 10:20 Completed Comprehensive Metabolic Panel Stat Lab 11/18/24 10:20 Completed Magnesium Stat Lab 11/18/24 10:20 Completed Partial Thromboplastin Time Stat Lab 11/18/24 10:20 Completed Prothrombin Time with INR Stat Lab 11/18/24 10:20 Completed Troponin I Stat Lab 11/18/24 10:20 Completed Urinalysis, C/S if Indicated Stat Lab 11/18/24 10:38 Completed VBG [Venous Blood Gas] Stat Lab 11/18/24 11:54 Completed Magnesium Sulfate 2 GM Ivpb [Magnesium Sulfate Ivpb] Med 11/18/24 15:01 Discontinued 2 gm in 50 ml IV X1 Potassium Chloride [K-Dur] Med 11/18/24 15:01 Discontinued 40 meq PO X1 ONE Vital Signs Vital signs: Vital Signs Temperature 98.7 F 11/18/24 09:53 Pulse Rate 86 11/18/24 09:53 Respiratory Rate 18 11/18/24 09:53 Blood Pressure 150/68 H 11/18/24 09:53 Pulse Oximetry (%) 95 11/18/24 09:53 Oxygen Delivery Method Room Air 11/18/24 09:53 Pulse ox is 95% on room air which is adequate. Discharge Plan Plan Patient Disposition: HOME (Self Care) Patient condition on transfer: Stable Prescriptions/Referrals Prescriptions/Med Rec: No Action aspirin 81 mg tablet,delayed release (DR/EC) 81 mg PO QDAY terazosin 5 mg capsule 5 mg PO QHS gabapentin 100 mg capsule 100 mg PO TID abiraterone 250 mg tablet 1,000 mg PO QDAY Rx Instructions: must be taken on empty stomach, at least 1 hr before or 2 hrs after a meal/food prednisone 5 mg tablet 5 mg PO QDAY rosuvastatin 5 mg tablet 5 mg PO QDAY meclizine 25 mg Tablet 25 mg PO TID PRN (Reason: Nausea Or Vomiting) Qty: 60 0RF metoprolol succinate 25 mg Tablet Extended Release 24 Hr 25 mg PO QDAY Qty: 90 0RF Eliquis 5 mg tablet 5 mg PO BID Qty: 90 0RF insulin glargine [Lantus Solostar U-100 Insulin] 100 unit/mL (3 mL) insulin pen 10 unit subcut QPM Qty: 15 0RF Referrals: No Primary/Family,Physician [Primary Care Provider] - In 1 week Problem List Clinical Impression: Hypomagnesemia, Hypokalemia Patient/Caregiver Discharge Instructions Education Materials: Discharge Instructions for ..., Discharge Instructions for ... Additional Instructions: Some general health principles that can help you are the [employer] principles: Nutrition (eat a plant-based diet, avoiding meats in general, avoiding highly processed foods) Exercise (Daily exercise/walks as tolerated) Water (Drink adequate fresh water to maintain hydration, concentrating on water rather than on soda, coffee, tea, juice, etc for hydration) [place] (Spend time - 15-20 minutes or so with skin exposed in the strike planning applications and late evening sun for Vitamin D health benefits) [place] (Avoid alcohol, illicit drugs, caffeinated beverages, smoking, etc) Air (Deep breathing exercises in the early mornings in fresh air) Rest (Adequate rest at night, going to bed a few hours before midnight and avoiding all screens/television/loud music in the time right before going to bed, also avoiding heavy meals just prior to going to bed) Trust in God (Spend time daily in Bible study and prayer - health benefits in contemplation of God's true character) Additional resources that can benefit: www.[employer], look under resources and seminars. Another good website is www.[employer].org Print Language: Ukrainian Stand Alone Forms: Danyelle Award Info., Patient Portal Info Letter MDM Narrative MDM hospital course (for use when minimal MDM required): IRuby, am scribing for and in the presence of Dr. Merino. Clinical Information Provided by: patient (and caregiver ) Medical Records reviewed [facility] Meds/Rx considered, not ordered None Labs/Rad/Tests considered, not ordered None Chronic Illness/Social Conditions which may negatively complicate care or outcome(s)-explain: None or not applicable EKG Interpretation EKG #1: EKG Interpretation: EKG @ 10:53AM. Atrial fibrillaton, rate 61, left axis deviation, no STEMI. Labs Labs: see narrative above Imaging Imaging Interpretation(s): Ordering Physician: Kevin Cunha Date of Service: 11/18/24 Procedure(s): XR chest 2V Accession Number(s): [id number] cc: Kevin Cunha; Vinay Javed MD; NO PRIMARY/FAMILY,PHYSICIAN~ EXAMINATION: PA lateral chest 2 views TECHNIQUE: Upright PA lateral chest 2 views Date and time: November 18, 2024, 1047 hours, comparison August 27, 2024 INDICATIONS: Onset chest pain today FINDINGS: Normal heart size. Significant hyperexpansion Scarring at the right lung base. No interval pneumonia or pulmonary edema IMPRESSION: COPD with significant hyperexpansion Dictated By: Vinay Javed MD Signed By: <Electronically signed by Vinay Javed MD in OV> 11/18/24 1155 Ordering Physician: Fariha Merino MD Date of Service: 11/18/24 Procedure(s): CT abdomen pelvis w con Accession Number(s): [id number] cc: Vinay Javed MD; Fariha Merino MD; NO PRIMARY/FAMILY,PHYSICIAN~ Examination: CT abdomen with intravenous contrast CT pelvis with intravenous contrast 2-D coronal reconstructions 2-D sagittal reconstructions Date and time of exam: November 18, 2024, 1213 hours, comparison August 03, 2023 INDICATIONS: Right-sided abdominal pain beginning today. CTDI: vol (mGy) 9.54 DLP: (mGycm) 553 Technique: Multiple axial sections of the abdomen and pelvis have been obtained. 64 slice high-resolution scanner used. 3 mm axial sections have been obtained, post intravenous injection 60 cc [id number] 2-D sagittal, coronal reconstructions obtained. Low dose protocols were performed. One or more of the following dose reduction techniques were used; automated exposure control, adjustment of the mA and/or KV according to patient size, use of iterative reconstruction technique. Findings: No visualized liver or splenic lesions Cholelithiasis No pancreatic or adrenal mass Bilateral renal cysts with moderate renal scar formation, no hydronephrosis renal or ureteral calculi Abdominal aortic calcification no aneurysmal dilatation No bowel obstruction 31 mm fat-containing umbilical hernia Significant prostatomegaly transverse dimension 5.9 cm Minimal thickening of the urinary bladder wall Advanced degenerative disc disease L5-S1 No pericecal inflammatory change IMPRESSION: Cholelithiasis Significant bilateral renal scar formation, no hydronephrosis No pericecal inflammatory change Dictated By: Vinay Javed MD Signed By: <Electronically signed by Vinay Javed MD in OV> 11/18/24 8651 Medication Administration(s) Medication Administration History Discontinued Medications Magnesium Sulfate (Magnesium Sulfate Ivpb) 2 gm in 50 mls @ 25 mls/hr IV X1 ONE Stop: 11/18/24 17:00 Last Admin: 11/18/24 15:33 Dose: 25 mls/hr Documented By: KALLIE Potassium Chloride (Potassium Chloride 20 Meq Tabcr) 40 meq PO X1 ONE Stop: 11/18/24 15:02 Last Admin: 11/18/24 15:31 Dose: 40 meq Documented By: KALLIE See above Diagnosis Diagnoses ruled out and/or further discussions: Hypomagnesemia Hypokalemia
[2024-11-18 10:59] LABS: INR 1.2 (0.9-1.3); Partial Thromboplastin Time 32.2 Seconds (22.0-36.0); Prothrombin Time 12.4 Seconds (9.0-12.2)
[2024-11-18 11:00] LABS: B-Type Natriuretic Peptide 203 pg/mL (0-100)
[2024-11-18 11:10] VITALS: BP 129/70; PULSE 62; RESP 13; TEMP 36.7; O2SAT 96
[2024-11-18 11:12] LABS: Alanine Aminotransferase 8 U/L (10-49); Albumin, Serum 3.6 gm/dL (3.4-4.8); Albumin/Globulin Ratio 1.4 (1.2-2.2); Alkaline Phosphatase 87 U/L (46-116); Anion Gap 11 (7-16); Aspartate Amino Transferase 13 U/L (0-34); BUN/Creatinine Ratio 6 Ratio (12-20); Bilirubin,Total 0.9 mg/dL (0.3-1.2); Blood Urea Nitrogen 7 mg/dL (9-23); Calcium 8.8 mg/dL (8.3-10.6); Calcium (Corrected) 9.1 mg/dL (8.5-10.1); Carbon Dioxide 24.0 mMol/L (20.0-31.0); Chloride 107 mMol/L (98-107); Creatinine (Component) 1.1 mg/dL (0.6-1.3); Estimated Creatinine Clearance 62.5 mL/min (>60); Globulin 2.6 gm/dL (2.3-3.5); Glucose 122 mg/dL (74-106); Magnesium 1.5 mg/dL (1.6-2.6); Osmolality,Calculated 282 (275-295); Potassium 3.3 mMol/L (3.4-5.1); Sodium 142 mMol/L (136-145); Total Protein 6.2 gm/dL (5.7-8.2); Troponin I < 0.020 ng/mL (0.0-0.045); eGFR > 60 See Note
--- NOTE | 2024-11-18 11:15 | XR_ITS ---
Examination: CT abdomen with intravenous contrast CT pelvis with intravenous contrast 2-D coronal reconstructions 2-D sagittal reconstructions Date and time of exam: November 18, 2024, 1213 hours, comparison August 03, 2023 INDICATIONS: Right-sided abdominal pain beginning today. CTDI: vol (mGy) 9.54 DLP: (mGycm) 553 Technique: Multiple axial sections of the abdomen and pelvis have been obtained. 64 slice high-resolution scanner used. 3 mm axial sections have been obtained, post intravenous injection 60 cc Isovue-370 2-D sagittal, coronal reconstructions obtained. Low dose protocols were performed. One or more of the following dose reduction techniques were used; automated exposure control, adjustment of the mA and/or KV according to patient size, use of iterative reconstruction technique. Findings: No visualized liver or splenic lesions Cholelithiasis No pancreatic or adrenal mass Bilateral renal cysts with moderate renal scar formation, no hydronephrosis renal or ureteral calculi Abdominal aortic calcification no aneurysmal dilatation No bowel obstruction 31 mm fat-containing umbilical hernia Significant prostatomegaly transverse dimension 5.9 cm Minimal thickening of the urinary bladder wall Advanced degenerative disc disease L5-S1 No pericecal inflammatory change IMPRESSION: Cholelithiasis Significant bilateral renal scar formation, no hydronephrosis No pericecal inflammatory change
[2024-11-18 11:30] LABS: Bilirubin,Urine Negative (Negative); Blood,Urine Negative (Negative); Clarity,Urine Clear (Clear/Hazy); Color,Urine Lt-Yellow (Lt Yel-Yel); Culture Indicated,Urine Not Indicated; Glucose, Urine Negative (Negative); Ketones,Urine Negative (Negative); Leukocyte Esterase,Urine Negative (Negative); Nitrite,Urine Negative (Negative); PH,Urine 7.5 (5.0-7.0); Protein,Urine Negative (Neg - Trace); RBC,Urine 4 /hpf (0-3); Specific Gravity,Urine 1.011 (1.001-1.035); Squamous Epithelial Cell,Urine 1 /hpf (0-5); Urobilinogen,Urine Negative mg/dL (0.0-1.0); WBC,Urine < 1 /hpf (0-5)
[2024-11-18 12:00] LABS: Base Excess, Venous 3 (-3-3); O2 Saturation, Venous 56 % (96-97); PCO2, Venous 40 mmHg (36-56); PO2, Venous 29 mmHg (15-58); pH, Venous 7.44 (7.33-7.66)
[2024-11-18 12:30] LABS: Ammonia < 10 uMol/L (11-32)
[2024-11-18] MEDS: Magnesium Sulfate 2 GM Ivpb 2 GM/50 ML BAG IV (15:33)
[2024-11-18 15:35] VITALS: BP 146/78; PULSE 74; RESP 13; TEMP 36.5; O2SAT 95
[2024-11-18 16:55] VITALS: BP 157/92; PULSE 58; RESP 18; TEMP 36.6; O2SAT 96
== END 2024-11-18 17:59 | disposition home or self-care (01) ==
PROVIDERS: Nurse Practitioner Family; Emergency Provider Family Medicine
DX: E87.6 Hypokalemia (principal); E83.42 Hypomagnesemia; E11.9 Type 2 diabetes mellitus without complications; E78.5 Hyperlipidemia, unspecified; I10 Essential (primary) hypertension; J44.9 Chronic obstructive pulmonary disease, unspecified; Z79.01 Long term (current) use of anticoagulants
CPT/HCPCS: 36415; 71046; 74177; 80053; 81001; 82140; 82803; 83735; 83880; 84484; 85025; 85610; 85730; 93005; 99283; A4649; J3475; Q9967; A9270